=== PATIENT | male | born 1940 | race Caucasian/White ===

== ENCOUNTER 2023-07-03 18:14 | Emergency (ER) | payer MEDICARE, BC, SELFPAY ==
[2023-07-03 18:18] VITALS: BP 124/86
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
[2023-07-03 21:18] LABS: % Basophils 0.5 % (0-2); % Immature Granulocytes 0.5 % (0-0.5); % Lymphocytes 29.9 % (20.5-51.1); % Monocytes 7.7 % (1.7-9.3); % Neutrophils 56.4 % (42.2-75.2); Absolute Eosinophils 0.3 10^3/uL (0-0.7); Absolute Lymphocytes 1.7 10^3/uL (1.2-3.4); Absolute Monocytes 0.5 10^3/uL (0.1-0.6); Absolute Neutrophils 3.3 10^3/uL (1.4-6.5); Hematocrit 37.4 % (39.0-52.0); Hemoglobin 13.4 g/dL (13.0-18.0); Mean Corp Hgb Conc. 35.8 g/dL (33.0-37.0); Mean Corpuscular Hgb 32.4 pg (27.0-31.0); Mean Corpuscular Volume 90.6 fL (80.0-94.0); Mean Platelet Volume 9.8 fL (7.4-10.4); Nucleated Red Blood Cells % 0 % (-); Platelet Count 194 10^3/uL (130-400); Red Blood Cell Count 4.13 10^6/uL (4.70-6.10); Red Cell Dist. Width 12.6 % (11.5-14.5); White Blood Cell Count 5.8 10^3/uL (4.8-10.8)
[2023-07-03 21:31] LABS: ALT (SGPT) 22 U/L (0-50); AST (SGOT) 32 U/L (17-59); Alkaline Phosphatase 106 U/L (38-126); Blood Urea Nitrogen 11 mg/dl (9-20); Calcium 9.2 mg/dl (8.4-10.2); Carbon Dioxide 26 mmol/L (22-30); Chloride 106 mmol/L (98-107); Glucose 91 mg/dl (70-99); Lactic Acid 1.2 mmol/L (0.7-2.0); Potassium 4.5 mmol/L (3.5-5.1); Sodium 136 mmol/L (135-145); Total Bilirubin 0.9 mg/dl (0.2-1.3); Total Protein 6.7 g/dl (6.3-8.2); eGFR > 60.00
[2023-07-03] MEDS: VANCOCIN 200 IV (22:36)
== END 2023-07-04 00:25 | disposition home or self-care (01) ==
LOC: EMR 18:14
PROVIDERS: EMERGENCY PHYSICIAN Emergency Medicine; FAMILY PHYSICIAN Internal Medicine
DX: L03.116 Cellulitis of left lower limb (principal); L97.529 Non-pressure chronic ulcer of other part of left foot with unspecified severity; I47.10 Supraventricular tachycardia, unspecified; I25.10 Atherosclerotic heart disease of native coronary artery without angina pectoris; K21.9 Gastro-esophageal reflux disease without esophagitis; I10 Essential (primary) hypertension; E78.00 Pure hypercholesterolemia, unspecified; Z85.46 Personal history of malignant neoplasm of prostate; Z90.49 Acquired absence of other specified parts of digestive tract; Z95.0 Presence of cardiac pacemaker
CPT/HCPCS: 99284; 96374; 73630; 80053; 83605; 85025; 87040; 93971

== ENCOUNTER → 2023-07-06 08:06 | Outpatient (REF) | payer MEDICARE, BC, SELFPAY | LOC: WOUND 08:06 | PROVIDERS: ATTENDING PHYSICIAN Surgery; REFERRING PHYSICIAN Internal Medicine | DX: L97.322 Non-pressure chronic ulcer of left ankle with fat layer exposed (principal); W34.00XS Accidental discharge from unspecified firearms or gun, sequela; G60.3 Idiopathic progressive neuropathy | CPT/HCPCS: 17250; 99203 ==

== ENCOUNTER → 2023-07-13 11:10 | Outpatient (REF) | payer MEDICARE, BC, SELFPAY | LOC: WOUND 11:10 | PROVIDERS: ATTENDING PHYSICIAN Surgery; REFERRING PHYSICIAN Internal Medicine | DX: L97.322 Non-pressure chronic ulcer of left ankle with fat layer exposed (principal); W34.00XS Accidental discharge from unspecified firearms or gun, sequela; G60.3 Idiopathic progressive neuropathy; G62.9 Polyneuropathy, unspecified; M21.379 Foot drop, unspecified foot | CPT/HCPCS: 17250; 99212 ==

== ENCOUNTER → 2023-07-20 10:39 | Outpatient (REF) | payer MEDICARE, BC, SELFPAY | LOC: WOUND 10:39 | PROVIDERS: ATTENDING PHYSICIAN Surgery; REFERRING PHYSICIAN Internal Medicine | DX: L97.322 Non-pressure chronic ulcer of left ankle with fat layer exposed (principal); G60.3 Idiopathic progressive neuropathy; G62.9 Polyneuropathy, unspecified; M21.379 Foot drop, unspecified foot | CPT/HCPCS: 11042 ==

== ENCOUNTER → 2023-07-27 13:00 | Outpatient (REF) | payer MEDICARE, BC, SELFPAY | LOC: WOUND 13:00 | PROVIDERS: ATTENDING PHYSICIAN Surgery; FAMILY PHYSICIAN Internal Medicine | DX: L97.322 Non-pressure chronic ulcer of left ankle with fat layer exposed (principal); W34.00XS Accidental discharge from unspecified firearms or gun, sequela; G60.3 Idiopathic progressive neuropathy; G62.9 Polyneuropathy, unspecified; M21.379 Foot drop, unspecified foot | CPT/HCPCS: 11042 ==

== ENCOUNTER → 2023-08-04 10:28 | Outpatient (REF) | payer MEDICARE, BC, SELFPAY | LOC: WOUND 10:28 | PROVIDERS: ATTENDING PHYSICIAN Surgery; FAMILY PHYSICIAN Internal Medicine | DX: L97.322 Non-pressure chronic ulcer of left ankle with fat layer exposed (principal); W34.00XS Accidental discharge from unspecified firearms or gun, sequela; G60.3 Idiopathic progressive neuropathy; G62.9 Polyneuropathy, unspecified; M21.379 Foot drop, unspecified foot | CPT/HCPCS: 11042 ==

== ENCOUNTER → 2023-08-10 11:05 | Outpatient (REF) | payer MEDICARE, BC, SELFPAY | LOC: WOUND 11:05 | PROVIDERS: ATTENDING PHYSICIAN Surgery; FAMILY PHYSICIAN Internal Medicine | DX: L97.322 Non-pressure chronic ulcer of left ankle with fat layer exposed (principal); W34.00XS Accidental discharge from unspecified firearms or gun, sequela; G60.3 Idiopathic progressive neuropathy; G62.9 Polyneuropathy, unspecified; M21.379 Foot drop, unspecified foot | CPT/HCPCS: 99212 ==

== ENCOUNTER → 2023-08-17 11:32 | Outpatient (REF) | payer MEDICARE, BC, SELFPAY | LOC: WOUND 11:32 | PROVIDERS: ATTENDING PHYSICIAN Surgery; FAMILY PHYSICIAN Internal Medicine | DX: L97.322 Non-pressure chronic ulcer of left ankle with fat layer exposed (principal); W34.00XS Accidental discharge from unspecified firearms or gun, sequela; G60.3 Idiopathic progressive neuropathy; G62.9 Polyneuropathy, unspecified; M21.379 Foot drop, unspecified foot | CPT/HCPCS: 99212 ==

== ENCOUNTER → 2023-08-24 11:08 | Outpatient (REF) | payer MEDICARE, BC, SELFPAY | LOC: WOUND 11:08 | PROVIDERS: ATTENDING PHYSICIAN Surgery; FAMILY PHYSICIAN Internal Medicine | DX: L97.322 Non-pressure chronic ulcer of left ankle with fat layer exposed (principal); W34.00XS Accidental discharge from unspecified firearms or gun, sequela; G60.3 Idiopathic progressive neuropathy; G62.9 Polyneuropathy, unspecified; M21.379 Foot drop, unspecified foot | CPT/HCPCS: 99212 ==

== ENCOUNTER 2023-12-23 13:25 | Emergency (ER) | payer MEDICARE, BC, SELFPAY ==
[2023-12-23 13:31] VITALS: BP 90/54
[2023-12-23 13:33] VITALS: BMI 28.7
[2023-12-23 13:39] VITALS: BP 90/54
[2023-12-23 13:56] LABS: % Basophils 0.6 % (0-2); % Eosinophils 3.5 % (0-6); % Immature Granulocytes 0.4 % (0-0.5); % Lymphocytes 28.3 % (20.5-51.1); % Monocytes 8.5 % (1.7-9.3); % Neutrophils 58.7 % (42.2-75.2); Absolute Eosinophils 0.2 10^3/uL (0-0.7); Absolute Lymphocytes 1.4 10^3/uL (1.2-3.4); Absolute Monocytes 0.4 10^3/uL (0.1-0.6); Absolute Neutrophils 2.8 10^3/uL (1.4-6.5); Hematocrit 37.5 % (39.0-52.0); Hemoglobin 13.2 g/dL (13.0-18.0); Mean Corp Hgb Conc. 35.2 g/dL (33.0-37.0); Mean Corpuscular Hgb 33.8 pg (27.0-31.0); Mean Corpuscular Volume 96.2 fL (80.0-94.0); Mean Platelet Volume 10.5 fL (7.4-10.4); Nucleated Red Blood Cells % 0 % (-); Platelet Count 154 10^3/uL (130-400); Red Cell Dist. Width 14.1 % (11.5-14.5); White Blood Cell Count 4.8 10^3/uL (4.8-10.8)
[2023-12-23 14:00] VITALS: BP 89/58
--- NOTE | 2023-12-23 14:08 | ED.GENMED ---
History of Present Illness
General
Chief Complaint: Fainting/Passed Out
Source: patient
Time Seen by Provider: 12/23/23 13:54
History of Present Illness
History of Present Illness:
83-year-old male presents to the emergency room after suffering a syncopal episode. Patient was evidently in the shower where he sits to bathe himself. His heard him retching and came to find him unresponsive. Patient is now at his baseline.
He has a history of vasovagal events. Patient denies chest pain, shortness of breath, abdominal pain.
Past History
Past History
ED Past Medical History: Arrthythmia (SVT), CAD (Pacemaker), Cancer (prostate carcinoma), GERD, HTN, Hypercholesterolemia and Other (interval bowel syndrome, vertigo, peripheral neuropathy, gout, syncope)
ED Past Surgical History: Appendectomy, Cardiac (pacemaker, ablation) and Orthopedic (knee surgery, carpal tunnel repair, pain stimulator in lumbar spine placed 2019)
Patient has exhibited threatening behavior?: No
PSI?: No
Social History
Tobacco: Non-smoker
Alcohol: None
Drug: None
Personal:
Living: with family
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
Family History
Family History: Other (reviewed and Noncontributory)
Phy Exam
Physical Exam
Physical Exam:
General: Awake, Alert, Oriented X2. No acute distress.
Vitals: unremarkable
Head: Atraumatic
Eyes: Pupils equal, EOMI
Throat: Airway intact, no exudates
Neck: Trachea midline
Lungs: Clear and equal b/l
Heart: Regular rate, no murmurs
Abd: Soft, Nontender, No pulsatile mass
Neuro: Cranial nerves intact, muscle strength equal bilaterally, cerebellar exam normal, has aphasia which is baseline
Skin: Warm, dry, no rash
Extremities: pulses equal b/l, no edema
Course
Orders/Labs/Results
Orders:
Orders
12/23/23 13:28
Electrocardiogram (*1) Urgent
Reason for Study: Syncope
12/23/23 13:29
EKG- Treatment ONCE
12/23/23 13:40
CMP [Comprehensive Metabolic Panel] Urgent
Complete Blood Count/With Diff Urgent
Troponin I Urgent
12/23/23 14:07
0.9% Sodium Chloride 500 ml [Nss] 500 ml IV BOLUS
Abnormal Lab Results
12/23/23
13:40
RBC 3.90 L 10^6/uL
(4.70-6.10)
Hct 37.5 L %
(39.0-52.0)
MCV 96.2 H fL
(80.0-94.0)
MCH 33.8 H pg
(27.0-31.0)
MPV 10.5 H fL
(7.4-10.4)
Glucose 144 H mg/dl
(70-99)
12/23/23 13:40
12/23/23 13:40
Vital Signs
Initial and Last Documented VS:
Initial Vital Signs
Pulse Resp
72 22
12/23/23 13:28 12/23/23 13:28
Last Documented Vital Signs
Temp Pulse Resp BP Pulse Ox
97.5 F 63 13 123/56 96
12/23/23 13:30 12/23/23 16:00 12/23/23 16:00 12/23/23 16:00 12/23/23 16:00
MDM/Problems Addressed
Differential Diagnosis Includes:
Vasovagal syncope, cardiac dysrhythmia,
MDM/Problems Addressed:
Patient presents after passing out. He has returned to baseline. His physical exam is benign. Blood pressure was mildly low but has improved with some fluids. Suspect an element of dehydration along with vasovagal event. Patient ambulated
through the department without difficulty. Labs are reassuring. Stable for discharge home.
*Pulse Oximetry
Patient hypoxic: no
*EKG
Interpreted by ED Provider?: Yes
Interpretation: abnormal
Heart Rate: 67
Rate: normal
Rhythm: sinus
Interval: first degree heart block
QRS Pattern: normal QRS
Ischemia: no ischemia
*Pug Machine Operator Interpretation
Interpretation: normal
Heart Rate: 67
Rhythm: sinus
*Critical Care Note
Total Time (30-74mins, 75-104mins- exclusive of procedures): Not Applicable
Patient Management
Social determinants of health affecting care: Strong social support
ED Attending Note
-
Portions of this chart may have been created with voice recognition software.� Occasional wrong word or��sound alike� substitutions may have occurred due to the inherent limitations of voice recognition software.
Discharge Plan
Departure
Patient Disposition: Home (Routine Discharge)
Date of Disposition: 12/23/23
Time of Disposition: 16:08
Patient with high blood pressure during this ER visit?: No
Condition: Good
Discharge Problem:
Vasovagal syncope
Instructions: Syncope (Fainting) (DC)
Prescriptions:
No Action
pantoprazole 40 MG tablet,delayed release (DR/EC)
40 mg PO BID
dicyclomine 10 MG capsule
10 mg PO DAILY
tamsulosin 0.4 MG capsule
0.4 mg PO Daily
Hold Instructions: Resume on 04/27/22.
simvastatin 20 MG tablet
20 mg PO QPM
Hold Instructions: Resume on 04/28/22.
aspirin 81 MG tablet,delayed release (DR/EC)
81 mg PO DAILY
allopurinol 300 MG tablet
150 mg PO DAILY
pregabalin 200 mg Capsule
200 mg PO BID
Patient Comments:
04/19/2022: last filled 04/03/22, 60 tabs for 30 days from [facility]
cholecalciferol (vitamin D3) [Vitamin D3] 50 mcg (2,000 unit) Tablet
50 mcg PO DAILY
doxycycline monohydrate 100 mg capsule
100 mg PO BID Qty: 14 0RF
Referrals:
Chuck Young MD [Family Provider] -
Interventions
Interventions:
*Risk Screen - Suicide Last Done: 12/23/23 13:34
*General Assessment Last Done: 12/23/23 13:34
*Neglect/Abuse Screening Last Done: 12/23/23 13:34
*ED COVID-19 Vaccine History Last Done: 12/23/23 13:34
*Nursing Disposition Last Done: 12/23/23 16:23
ED- Cardiac Assessment Last Done: 12/23/23 13:35
ED- Neurological Assessment Last Done: 12/23/23 13:35
Discharge Date and Time
Discharge Date/Time: 12/23/23 16:24
Print Language: BELGIAN
[2023-12-23 14:15] LABS: ALT (SGPT) 21 U/L (0-50); AST (SGOT) 28 U/L (17-59); Albumin 3.9 g/dl (3.5-5.0); Alkaline Phosphatase 52 U/L (38-126); Blood Urea Nitrogen 17 mg/dl (9-20); Calcium 9.1 mg/dl (8.4-10.2); Carbon Dioxide 25 mmol/L (22-30); Chloride 105 mmol/L (98-107); Estimated Creatinine Clearance 61 ml/min; Glucose 144 mg/dl (70-99); Potassium 4.4 mmol/L (3.5-5.1); Sodium 139 mmol/L (135-145); Total Bilirubin 0.9 mg/dl (0.2-1.3); Total Protein 6.3 g/dl (6.3-8.2); eGFR > 60.00
[2023-12-23] MEDS: NSS 500 IV (14:16)
[2023-12-23 14:21] LABS: Troponin I < 0.012 ng/ml
[2023-12-23 15:00] VITALS: BP 122/48
[2023-12-23 16:00] VITALS: BP 123/56
== END 2023-12-23 16:24 | disposition home or self-care (01) ==
LOC: EMR 13:25
PROVIDERS: EMERGENCY PHYSICIAN Emergency Medicine; FAMILY PHYSICIAN Internal Medicine
DX: R55 Syncope and collapse (principal); I25.10 Atherosclerotic heart disease of native coronary artery without angina pectoris; I10 Essential (primary) hypertension; E78.00 Pure hypercholesterolemia, unspecified; K21.9 Gastro-esophageal reflux disease without esophagitis; M10.9 Gout, unspecified; G62.9 Polyneuropathy, unspecified; Z95.0 Presence of cardiac pacemaker; Z85.46 Personal history of malignant neoplasm of prostate; Z79.82 Long term (current) use of aspirin; Z88.6 Allergy status to analgesic agent; Z88.5 Allergy status to narcotic agent; Z91.048 Other nonmedicinal substance allergy status
CPT/HCPCS: 99284; 80053; 84484; 85025; 93005

== ENCOUNTER 2023-12-31 14:36 | Emergency (ER) | payer MEDICARE, BC, SELFPAY ==
[2023-12-31 14:38] VITALS: BP 133/58
[2023-12-31 15:09] LABS: % Basophils 0.6 % (0-2); % Eosinophils 3.9 % (0-6); % Immature Granulocytes 0.4 % (0-0.5); % Lymphocytes 31.9 % (20.5-51.1); % Monocytes 5.7 % (1.7-9.3); % Neutrophils 57.5 % (42.2-75.2); Absolute Eosinophils 0.2 10^3/uL (0-0.7); Absolute Lymphocytes 1.6 10^3/uL (1.2-3.4); Absolute Monocytes 0.3 10^3/uL (0.1-0.6); Absolute Neutrophils 2.8 10^3/uL (1.4-6.5); Hematocrit 38.2 % (39.0-52.0); Hemoglobin 13.7 g/dL (13.0-18.0); Mean Corp Hgb Conc. 35.9 g/dL (33.0-37.0); Mean Corpuscular Hgb 32.9 pg (27.0-31.0); Mean Corpuscular Volume 91.6 fL (80.0-94.0); Mean Platelet Volume 10.3 fL (7.4-10.4); Nucleated Red Blood Cells % 0 % (-); Platelet Count 167 10^3/uL (130-400); Red Blood Cell Count 4.17 10^6/uL (4.70-6.10); Red Cell Dist. Width 13.5 % (11.5-14.5); White Blood Cell Count 4.9 10^3/uL (4.8-10.8)
[2023-12-31 15:33] LABS: Glucose - Point of Care 135 mg/dl (70-99)
[2023-12-31 15:36] LABS: ALT (SGPT) 25 U/L (0-50); AST (SGOT) 31 U/L (17-59); Albumin 4.1 g/dl (3.5-5.0); Alkaline Phosphatase 59 U/L (38-126); Blood Urea Nitrogen 15 mg/dl (9-20); Calcium 9.5 mg/dl (8.4-10.2); Carbon Dioxide 30 mmol/L (22-30); Glucose 160 mg/dl (70-99); Total Bilirubin 0.7 mg/dl (0.2-1.3); Total Protein 6.6 g/dl (6.3-8.2); eGFR > 60.00
[2023-12-31 16:00] VITALS: BP 125/61
[2023-12-31 16:01] LABS: Chloride 103 mmol/L (98-107); Potassium 4.5 mmol/L (3.5-5.1); Sodium 140 mmol/L (135-145)
[2023-12-31 17:00] VITALS: BP 150/63
[2023-12-31 18:00] VITALS: BP 131/70
[2023-12-31 18:00] LABS: Urine Albumin Trace (Neg - Trace); Urine Bilirubin 1+ (Negative); Urine Character Slightly Cloudy (Clear); Urine Color Yellow; Urine Glucose Negative (Negative); Urine Ketone Negative (Negative); Urine Leukocyte 2+ (Negative); Urine Nitrite Negative (Negative); Urine Occult Blood 4+ (Negative); Urine Specific Gravity 1.005 (<1.030); Urine Urobilinogen Negative (Neg - 1+)
[2023-12-31] MEDS: NSS 500 IV (18:22)
[2023-12-31 18:31] LABS: Urine Red Blood Cell 26-30 /HPF (0-2)
--- NOTE | 2023-12-31 18:32 | ED.GENMED ---
History of Present Illness
General
Chief Complaint: Change in Mental Status
Source: patient and family
Exam Limitations: dementia
Time Seen by Provider: 12/31/23 14:51
History of Present Illness
History of Present Illness:
83-year-old male who presents after a syncopal episode at home. states this happens to him often and typically only happens once or twice a year but recently happened on the . Patient offers no complaints but is noted that he has a
history of 'aphasia'. Sounds like family states that he was diagnosed with aphasia and truly unknown cause. They considered NPH but family states that they were told it was unlikely to be that. No vomiting. Patient offers no current complaints
but do admit that sometimes he does seem off balance
Past History
Past History
ED Past Medical History: Arrthythmia (SVT), CAD (Pacemaker), Cancer (prostate carcinoma), GERD, HTN, Hypercholesterolemia and Other (interval bowel syndrome, vertigo, peripheral neuropathy, gout, syncope)
ED Past Surgical History: Appendectomy, Cardiac (pacemaker, ablation) and Orthopedic (knee surgery, carpal tunnel repair, pain stimulator in lumbar spine placed 2019)
Patient has exhibited threatening behavior?: No
PSI?: No
Social History
Tobacco: Non-smoker
Alcohol: None
Drug: None
Personal:
Living: with family
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
Family History
Family History: Other (reviewed and Noncontributory)
Phy Exam
Physical Exam
Physical Exam:
Exam: Awake and alert, no respiratory distress, heart regular, no focal deficits, no pronator drift, is a bit aphasic at times and slightly confused. Unable to assess orientation questions. Skin normal. Abdomen soft and nontender.
Course
Orders/Labs/Results
Orders:
Orders
12/31/23 14:51
CT Head W/o Iv Contrast Urgent
Comment:
Reason For Exam: change in MS
Bedside Glucose- Treatment ONCE
Cardiac Monitoring- Treatment ONCE
12/31/23 14:52
Electrocardiogram (*1) Stat
Reason for Study: Other
Other Reason for Exam: change in ms
EKG- Treatment ONCE
12/31/23 14:58
Complete Blood Count/With Diff Urgent
Comprehensive Metabolic Panel Urgent
12/31/23 17:46
Urinalysis Reflex To Culture Urgent
Date Specimen was Collected: 12/31/23
Time Specimen was Collected: 16:22
Urine Microscopic Reflex Cult Urgent
Urine Culture Urgent
ROMINA Source: U
Specimen Description:
Date Specimen was Collected: 12/31/23
Time Specimen was Collected: 16:22
12/31/23 18:16
0.9% Sodium Chloride 500 ml [Nss] 500 ml IV BOLUS
Abnormal Lab Results
12/31/23 12/31/23 12/31/23
14:58 15:31 17:46
RBC 4.17 L 10^6/uL
(4.70-6.10)
Hct 38.2 L %
(39.0-52.0)
MCH 32.9 H pg
(27.0-31.0)
Glucose 160 H mg/dl
(70-99)
Ur Occult Blood Reflex 4+ A
(Negative)
Urine Bilirubin 1+ A
(Negative)
Leukocyte Esterase Rfl 2+ A
(Negative)
Urine RBC 26-30 A /HPF
(0-2)
Urine WBC (Reflex) 11-15 A /HPF
(0-5)
POC Glucose 135 H mg/dl
(70-99)
12/31/23 14:58
12/31/23 14:58
Vital Signs
Initial and Last Documented VS:
Initial Vital Signs
BP
133/58
12/31/23 14:38
Last Documented Vital Signs
Temp Pulse Resp BP Pulse Ox
99.1 F 73 15 131/70 96
12/31/23 19:02 12/31/23 18:30 12/31/23 18:30 12/31/23 18:00 12/31/23 18:00
MDM/Problems Addressed
MDM/Problems Addressed:
Syncope, chronic aphasia
*Radiology
Radiology exam reviewed: preliminary read by ED provider (No obvious intracranial hemorrhage) and radiology read reviewed
*Pulse Oximetry
Patient hypoxic: no
*EKG
Interpreted by ED Provider?: Yes
Rate: normal
Rhythm: sinus
[employer]: left axis deviation
Interval: normal interval
Ischemia: no ischemia
*Panel Machine Setter Interpretation
Rate: normal
Interpretation: normal
Rhythm: sinus
*Critical Care Note
Total Time (30-74mins, 75-104mins- exclusive of procedures): Not Applicable
Data Reviewed
Review of Other/Old Records Reveals: Radiology Studies (Prior MRI reading reviewed) and Discharge Summary (Prior discharge summary reviewed from September 2022)
Patient Management
Discussion with other providers: Other (Case discussed with [employer] plant health care technician who reports no abnormal arrhythmias when interrogated)
Escalation/DeEscalation of care consider admission/obs:
Patient observed and appears well. No evidence of abnormal arrhythmia. Labs grossly unremarkable. History of similar. I did discuss with the patient the idea of reconsidering NPH given his CT. May consider repeat neurology follow-up for lumbar
puncture to see if that improves symptoms. Okay for discharge. Prior MRI reviewed by me showing low sensitivity or concern for NPH.
ED Attending Note
-
Portions of this chart may have been created with voice recognition software.� Occasional wrong word or��sound alike� substitutions may have occurred due to the inherent limitations of voice recognition software.
Discharge Plan
Departure
Patient Disposition: Home (Routine Discharge)
Date of Disposition: 12/31/23
Time of Disposition: 18:59
Patient with high blood pressure during this ER visit?: No
Discharge Problem:
Syncope
Instructions: Syncope (fainting)
Prescriptions:
No Action
pantoprazole 40 MG tablet,delayed release (DR/EC)
40 mg PO BIDPRN PRN (Reason: Gastrointestinal issue)
dicyclomine 10 MG capsule
10 mg PO TIDPRN PRN (Reason: abdominal cramps)
tamsulosin 0.4 MG capsule
0.4 mg PO QPM
simvastatin 20 MG tablet
20 mg PO QPM
aspirin 81 MG tablet,delayed release (DR/EC)
81 mg PO QPM
allopurinol 300 MG tablet
150 mg PO DAILY
pregabalin 200 mg Capsule
200 mg PO TID
Patient Comments:
12/31/2023: last filled 12/22/23, 90 tabs for 30 days from [facility]
cholecalciferol (vitamin D3) [Vitamin D3] 50 mcg (2,000 unit) Tablet
100 mcg PO DAILY
B Complex Tablet Extended Release
1 tab PO DAILY
erythromycin 5 mg/gram (0.5 %) ointment
0.25 inch ophthalmic (eye) BID
Patient Comments:
12/31/2023: 'apply 1/4 inch ON EYELID twice a day'
Nad Supplement tablet
1 tab PO DAILY
Referrals:
Chuck Young MD [Family Provider] -
Activity Restrictions/Additional Instructions:
Please see your doctor in follow-up as discussed. 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 Return immediately for vomiting, chest pain, shortness of breath or any other
concerns.
Interventions
Interventions:
*Risk Screen - Suicide Last Done: 12/31/23 15:56
*General Assessment Last Done: 12/31/23 15:56
*Neglect/Abuse Screening Last Done: 12/31/23 15:56
ED- Fall Risk Assessment Last Done: 12/31/23 15:56
*ED COVID-19 Vaccine History Last Done: 12/31/23 15:56
ED- Neurological Assessment Last Done: 12/31/23 16:00
ED- Cardiac Assessment Last Done: 12/31/23 16:05
Discharge Date and Time
Print Language: PARAGUAYAN
[2023-12-31 19:01] VITALS: BP 146/71
== END 2023-12-31 20:04 | disposition home or self-care (01) ==
LOC: EMR 14:36
PROVIDERS: EMERGENCY PHYSICIAN Emergency Medicine; FAMILY PHYSICIAN Internal Medicine
DX: R55 Syncope and collapse (principal)
CPT/HCPCS: 99285; 70450; 80053; 81003; 81015; 82962; 85025; 87086; 93005

== ENCOUNTER 2024-01-29 16:14 | Inpatient (IN) | payer MEDICARE, BC, SELFPAY ==
[2024-01-29] VITALS (7 sets, daily range): BP systolic 100–147; BP diastolic 60–73
--- NOTE | 2024-01-29 13:28 | ED.GENMED ---
History of Present Illness
<Angelo Groves PA-C - Last Filed: 01/29/24 15:35>
General
Chief Complaint: Weakness
Source: records, family and ambulance crew
Time Seen by Provider: 01/29/24 13:14
History of Present Illness
History of Present Illness:
83-year-old male with past medical history of dementia, chronic pain, cardiac dysrhythmia status post pacemaker placement, prostate cancer presenting to the ER via EMS from home for reported generalized pain. Patient had his pain stimulator removed
yesterday (unclear as to why and EMS was unable to tell us why) and has been reportedly continuously yelling and screaming. Patient unable to provide any history secondary to his mental status.
Past History
<Angelo Groves PA-C - Last Filed: 01/29/24 15:35>
Past History
ED Past Medical History: Arrthythmia (SVT), CAD (Pacemaker), Cancer (prostate carcinoma), GERD, HTN, Hypercholesterolemia and Other (interval bowel syndrome, vertigo, peripheral neuropathy, gout, syncope)
ED Past Surgical History: Appendectomy, Cardiac (pacemaker, ablation) and Orthopedic (knee surgery, carpal tunnel repair, pain stimulator in lumbar spine placed 2020)
Patient has exhibited threatening behavior?: No
PSI?: No
Social History
Tobacco: Non-smoker
Alcohol: None
Drug: None
Personal:
Living: with family
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
Family History
Family History: Other (reviewed and Noncontributory)
Review of Systems
<Angelo Groves PA-C - Last Filed: 01/29/24 15:35>
Review of Systems
All Other Systems: ROS reviewed and negative except as documented in HPI and ROS
Phy Exam
<Angelo Groves PA-C - Last Filed: 01/29/24 15:35>
Physical Exam
Physical Exam:
GENERAL: Alert , in no apparent distress intermittently yelling out and screaming at staff but redirectable
EYE: conjunctiva clear
NECK: Supple
ENT: o/p clr, mmm.
CARDIAC: Regular rate and rhythm
LUNGS: Clear breath sounds bilaterally, no acute respiratory distress, no wheezes/rales/rhonchi
Back: 2 dressings overlying the central distal thoracic/upper lumbar spine and 1 within the left paralumbar region. No surrounding erythema or purulence
NEUROLOGICAL: Alert but unable to answer questions
SKIN: Warm and dry, skin intact.
MUSCULOSKELETAL: well perfused.
PSYCH: Unable to assess
Scores
<Angelo Groves PA-C - Last Filed: 01/29/24 15:35>
Heart Failure Risk
Heart Failure Risk Score: Not Applicable
Heart Score for Chest Pain Patients
STEMI patient?: Not applicable
Withdrawal Assessment of Alcohol
Withdrawal Assessment Completed?: Not applicable
Course
<Angelo Groves PA-C - Last Filed: 01/29/24 15:35>
Orders/Labs/Results
Orders:
Orders
01/29/24 13:45
Complete Blood Count/With Diff Urgent
Comprehensive Metabolic Panel Urgent
Urinalysis Reflex To Culture Urgent
Date Specimen was Collected: 01/29/24
Time Specimen was Collected: 13:43
Urine Microscopic Reflex Cult Urgent
Urine Culture Urgent
ROMINA Source: U
Specimen Description:
Date Specimen was Collected: 01/29/24
Time Specimen was Collected: 13:43
01/29/24 13:46
Interrogate Pacemaker- Treatment ONCE
Lorazepam [Ativan] 1 mg IV NOW STA
01/29/24 13:47
CT Head W/o Iv Contrast Urgent
Comment:
Reason For Exam: AMS, fall, ? hydrocephalus
01/29/24 14:00
Pregabalin [Lyrica] 200 mg PO NOW STA
01/29/24 14:31
CefTRIAXone [Rocephin] 1,000 mg IV NOW STA
Abnormal Lab Results
01/29/24
13:45
RBC 4.13 L 10^6/uL
(4.70-6.10)
Hct 38.0 L %
(39.0-52.0)
MCH 32.7 H pg
(27.0-31.0)
MPV 11.0 H fL
(7.4-10.4)
Abs Immat Gran (auto) 0.1 H 10^3/uL
(0-0.05)
Absolute Monos (auto) 1.1 H 10^3/uL
(0.1-0.6)
Immature Gran % 0.6 H %
(0-0.5)
Monocytes % 12.5 H %
(1.7-9.3)
Glucose 108 H mg/dl
(70-99)
Total Bilirubin 1.5 H mg/dl
(0.2-1.3)
Ur Occult Blood Reflex 3+ A
(Negative)
Urine Nitrite (Reflex) Positive A
(Negative)
Leukocyte Esterase Rfl 2+ A
(Negative)
Urine WBC (Reflex) >100 A /HPF
(0-5)
Urine Albumin (Reflex) 2+ A
(Neg - Trace)
01/29/24 13:45
01/29/24 13:45
Vital Signs
Initial and Last Documented VS:
Initial Vital Signs
Temp Pulse Resp BP Pulse Ox
97.8 F 77 16 124/62 97
01/29/24 13:15 01/29/24 13:15 01/29/24 13:15 01/29/24 13:15 01/29/24 13:15
Last Documented Vital Signs
Temp Pulse Resp BP Pulse Ox
97.8 F 78 15 124/60 96
01/29/24 13:15 01/29/24 14:15 01/29/24 14:15 01/29/24 14:26 01/29/24 14:26
<Mando Cruz MD - Last Filed: 01/29/24 14:04>
Orders/Labs/Results
Orders:
Orders
01/29/24 13:45
Complete Blood Count/With Diff Urgent
Comprehensive Metabolic Panel Urgent
Urinalysis Reflex To Culture Urgent
Date Specimen was Collected: 01/29/24
Time Specimen was Collected: 13:43
Urine Microscopic Reflex Cult Urgent
Urine Culture Urgent
ROMINA Source: U
Specimen Description:
Date Specimen was Collected: 01/29/24
Time Specimen was Collected: 13:43
01/29/24 13:46
Interrogate Pacemaker- Treatment ONCE
Lorazepam [Ativan] 1 mg IV NOW STA
01/29/24 13:47
CT Head W/o Iv Contrast Urgent
Comment:
Reason For Exam: AMS, fall, ? hydrocephalus
01/29/24 14:00
Pregabalin [Lyrica] 200 mg PO NOW STA
01/29/24 14:31
CefTRIAXone [Rocephin] 1,000 mg IV NOW STA
Abnormal Lab Results
01/29/24
13:45
RBC 4.13 L 10^6/uL
(4.70-6.10)
Hct 38.0 L %
(39.0-52.0)
MCH 32.7 H pg
(27.0-31.0)
MPV 11.0 H fL
(7.4-10.4)
Abs Immat Gran (auto) 0.1 H 10^3/uL
(0-0.05)
Absolute Monos (auto) 1.1 H 10^3/uL
(0.1-0.6)
Immature Gran % 0.6 H %
(0-0.5)
Monocytes % 12.5 H %
(1.7-9.3)
Glucose 108 H mg/dl
(70-99)
Total Bilirubin 1.5 H mg/dl
(0.2-1.3)
Ur Occult Blood Reflex 3+ A
(Negative)
Urine Nitrite (Reflex) Positive A
(Negative)
Leukocyte Esterase Rfl 2+ A
(Negative)
Urine WBC (Reflex) >100 A /HPF
(0-5)
Urine Albumin (Reflex) 2+ A
(Neg - Trace)
01/29/24 13:45
01/29/24 13:45
Vital Signs
Initial and Last Documented VS:
Initial Vital Signs
Temp Pulse Resp BP Pulse Ox
97.8 F 77 16 124/62 97
01/29/24 13:15 01/29/24 13:15 01/29/24 13:15 01/29/24 13:15 01/29/24 13:15
Last Documented Vital Signs
Temp Pulse Resp BP Pulse Ox
97.8 F 78 15 124/60 96
01/29/24 13:15 01/29/24 14:15 01/29/24 14:15 01/29/24 14:26 01/29/24 14:26
<Angelo Groves PA-C - Last Filed: 01/29/24 15:35>
MDM/Problems Addressed
Differential Diagnosis Includes:
Medication withdrawal, dementia, less concern for surgical infection given surgery occurred less than 24 hours ago
MDM/Problems Addressed:
83-year-old male presenting to the emergency department for evaluation of reportedly generalized pain. History very difficult to obtain given dementia. Patient is mostly not answering questions but did respond to his name. Patient reportedly had
his pain stimulator removed yesterday and on his medication list it notes clindamycin due to infection of the stimulator. I contacted the patient's who is currently driving and on her way to the hospital so will obtain further information from
when she arrives here. Patient's disposition pending. In the meantime we will check labs and urine. Reassessment following
Chronic conditions affecting care: Other (Dementia, chronic pain disorder)
<Angelo Groves PA-C - Last Filed: 01/29/24 15:35>
*Radiology
Radiology exam reviewed: radiology read reviewed
*Pulse Oximetry
Patient hypoxic: no
*Critical Care Note
Total Time (30-74mins, 75-104mins- exclusive of procedures): Not Applicable
Data Reviewed
Review of Other/Old Records Reveals: Labs and Discharge Summary
<Angelo Groves PA-C - Last Filed: 01/29/24 15:35>
Comment
Comment:
1:45 PM: Patient's now in the emergency department. Spinal stimulator was removed as it was not functioning properly and leads were not in the correct place. This was also removed so that patient could proceed with getting an MRI as he is
currently in the workup with [facility] for a hydrocephalus. Patient has had CT scans done which showed dilation of the ventricles and there was concern for this however because patient's spinal stimulator was not going correctly into MRI compatible
mode is needed to be removed. Patient notes that he does have a pacemaker that is MRI compatible. We will interrogate patient's pacemaker. Patient's also notes that he is fallen 4 times in the last week with last being around 4 AM where
patient was wedged in between the bed and the nightstand. She notes she was unable to get him up and needed to call EMS to get him back into bed. Patient states that she does not feel patient is safe to go home and would be best served being
admitted or transferred.
Patient Management
Discussion with other providers: Hospitalist
Escalation/DeEscalation of care consider admission/obs:
Patient's urine is nitrite positive with greater than 100 WBCs. Rocephin ordered. Head CT unremarkable for any acute pathology. Patient to be admitted for continued workup and treatment.
ED Attending Note
<Angelo Groves PA-C - Last Filed: 01/29/24 15:35>
-
Portions of this chart may have been created with voice recognition software.� Occasional wrong word or��sound alike� substitutions may have occurred due to the inherent limitations of voice recognition software.
<Mando Cruz MD - Last Filed: 01/29/24 14:04>
ED Attending Note
Patient seen and examined by attending physician: Yes
I performed the substantive portion of visit, reviewed & personally made and approve the management plan that is documented in note by myself or ROMULO.: Yes
ED Attending Note:
History is from the patient's . 83-year-old male history of aphasia with known hydrocephalus presents with gradual but progressive change in mental status. Patient had a nerve stimulator removed yesterday so we can get an MRI. However over
the last 2 weeks he has been nonambulatory increasing change in mental status. Patient is unable to add history.
On exam patient is nontoxic-appearing stable vital signs. Warm and dry. Perfusing well. Will make good eye contact and at times follow some simple directions but at other times ignores these request. He is grossly nonfocal. He is aphasic. He
at times seems to wince with increasing pain grabbing the right leg. This apparently is a chronic issue.
Impression progressive gradual with more acute component of mental status change general weakness. Doubt acute infectious issue. Patient is nontoxic. Workup in progress including labs CT of the head. Will need admission. Depending on results
may or may not need more urgent neurosurgical involvement
Discharge Plan
Departure
Patient Disposition: Admit
Date of Disposition: 01/29/24
Time of Disposition: 15:13
Presentation/result/management discussed w/ accepting MD/DO: Hospitalist
Discharge Problem:
Acute UTI, Altered mental status
Prescriptions:
No Action
pantoprazole 40 MG tablet,delayed release (DR/EC)
40 mg PO BIDPRN PRN (Reason: Gastrointestinal issue)
dicyclomine 10 MG capsule
10 mg PO TIDPRN PRN (Reason: abdominal cramps)
tamsulosin 0.4 MG capsule
0.4 mg PO QPM
simvastatin 20 MG tablet
20 mg PO QPM
aspirin 81 MG tablet,delayed release (DR/EC)
81 mg PO QPM
allopurinol 300 MG tablet
150 mg PO DAILY
pregabalin 200 mg Capsule
200 mg PO TID
Patient Comments:
01/29/24: last filled 01/19/24, 90 tabs for 30 days from [facility]
B Complex Tablet Extended Release
1 tab PO DAILY
Nad Supplement tablet
1 tab PO DAILY
ketoconazole 2 % Shampoo
1 applic TOPICAL DAILY
clindamycin HCl 300 mg Capsule
300 mg PO TID
Patient Comments:
01/29/24: filled 01/25/24, to take for 7 days
cholecalciferol (vitamin D3) 100 mcg (4,000 unit) Tablet
100 mcg PO DAILY
Referrals:
UNKNOWN - PT NOT,INTERVIEWE [Family Provider] -
Interventions
Interventions:
*Risk Screen - Suicide Last Done: 01/29/24 13:15
*General Assessment Last Done: 01/29/24 13:15
*Neglect/Abuse Screening Last Done: 01/29/24 13:15
ED- Fall Risk Assessment Last Done: 01/29/24 14:26
*ED COVID-19 Vaccine History Last Done: 01/29/24 14:28
ED- Cardiac Assessment Last Done: 01/29/24 14:26
ED- Neurological Assessment Last Done: 01/29/24 14:26
ED- Pulmonary Assessment Last Done: 01/29/24 14:26
Discharge Date and Time
Print Language: SAMI
[2024-01-29 13:53] LABS: % Basophils 0.2 % (0-2); % Eosinophils 1.2 % (0-6); % Immature Granulocytes 0.6 % (0-0.5); % Lymphocytes 22.8 % (20.5-51.1); % Monocytes 12.5 % (1.7-9.3); % Neutrophils 62.7 % (42.2-75.2); Absolute Eosinophils 0.1 10^3/uL (0-0.7); Absolute Immature Granulocytes 0.1 10^3/uL (0-0.05); Absolute Lymphocytes 1.9 10^3/uL (1.2-3.4); Absolute Monocytes 1.1 10^3/uL (0.1-0.6); Absolute Neutrophils 5.3 10^3/uL (1.4-6.5); Hemoglobin 13.5 g/dL (13.0-18.0); Mean Corp Hgb Conc. 35.5 g/dL (33.0-37.0); Mean Corpuscular Hgb 32.7 pg (27.0-31.0); Nucleated Red Blood Cells % 0 % (-); Platelet Count 179 10^3/uL (130-400); Red Blood Cell Count 4.13 10^6/uL (4.70-6.10); Red Cell Dist. Width 12.9 % (11.5-14.5); White Blood Cell Count 8.4 10^3/uL (4.8-10.8)
[2024-01-29] MEDS: ATIVAN 1 MG IV (13:55)
[2024-01-29 14:09] LABS: ALT (SGPT) 26 U/L (0-50); AST (SGOT) 29 U/L (17-59); Albumin 3.9 g/dl (3.5-5.0); Alkaline Phosphatase 77 U/L (38-126); Blood Urea Nitrogen 18 mg/dl (9-20); Calcium 9.3 mg/dl (8.4-10.2); Carbon Dioxide 27 mmol/L (22-30); Chloride 102 mmol/L (98-107); Glucose 108 mg/dl (70-99); Potassium 4.4 mmol/L (3.5-5.1); Sodium 137 mmol/L (135-145); Total Bilirubin 1.5 mg/dl (0.2-1.3); Total Protein 6.5 g/dl (6.3-8.2); eGFR > 60.00
[2024-01-29 14:10] LABS: Urine Albumin 2+ (Neg - Trace); Urine Bilirubin Negative (Negative); Urine Character Very Cloudy (Clear); Urine Color Yellow; Urine Glucose Negative (Negative); Urine Ketone Negative (Negative); Urine Leukocyte 2+ (Negative); Urine Nitrite Positive (Negative); Urine Occult Blood 3+ (Negative); Urine Urobilinogen Negative (Neg - 1+)
[2024-01-29] MEDS: LYRICA 200 MG PO (14:21)
[2024-01-29 14:45] LABS: Urine White Cell >100 /HPF (0-5)
[2024-01-29] MEDS: ROCEPHIN 1000 MG IV (14:47)
--- NOTE | 2024-01-29 15:16 | HPS.HSE ---
Addendum entered and electronically signed by Dave Epstein MD 01/29/24 16:38:
I saw and examined the patient.
The ELASTIC ASSEMBLER or PA's note was reviewed and I agree with the note.
Comment:
83 years old with past medical history for SVT, prostate cancer, GERD, hypertension, hyperlipidemia, irritable bowel syndrome, vertigo, peripheral neuropathy, gout, syncope presented to us with worsening confusion, frequent falls for past few days.
Of note, being worked up for possible hydrocephalus at [facility]. straight caths patient. Patient had worsening confusion frequent falls since last February. Required to have brain stimulator removed for MRI which was removed
yesterday. Patient's symptoms worsened, along with screaming and yelling today with pain�this is most likely secondary to lack of pain stimulator. Otherwise vitals stay stable labs grossly unremarkable, UA positive. CT head with chronic central
atrophy and microvascular ischemic disease. Plan�continue ceftriaxone for UTI. F/u cultures. Haldol for agitation if qtc <500, toradol for pain.
Original Note:
Family Physician
-
Family Physician: INTERVIEWE UNKNOWN - PT NOT
Chief Complaint
-
Worsening confusion and falls
History of Present Illness
83 years old with past medical history for SVT, prostate cancer, GERD, hypertension, hyperlipidemia, irritable bowel syndrome, vertigo, peripheral neuropathy, gout, syncope presented to us with worsening confusion, frequent falls for past few days.
Patient with confusion and frequent falls since last February. His brain stimulator was removed yesterday to get MRI to find out the cause of confusion and fall. Patient was told by a physician that he might have fluid in his brain and should
get an MRI. Family not able to obtain MRI until March. As per ,she brought him due to worsening right lower extremity pain. He was screaming and yelling today with pain. he was prescribed clindamycin prophylactically since the pain
stimulator removal yesterday. Patient is poor historian. Not able to answer any questions appropriately.
He was noted to have positive UA. Patient received ceftriaxone for UTI, Ativan for agitation and Lyrica for pain. Admitted for further management
Medical History
Past Medical History
Past Medical History: Reports Other
Additional Past Medical History:
Gout
Syncope
IBS
peripheral neuropathy
GERD
Colon polyps
Hyperlipidemia
Vertigo
Prostate cancer
Kidney stones
Sick sinus syndrome
SVT
Chronic pain
Past Surgical History: Reports Other
Additional Past Surgical History:
Appendectomy
Knee surgery
Carpal tunnel surgery
Pacemaker placement
Laminectomy
SVT ablation
Pain stimulator in back
jaw surgery
Social History
Tobacco: Non-smoker
Alcohol: None
Drug: None
Personal:
Living: With Family
Family History
Family History: Not pertinent
Allergies / Home Medications
Allergies reflects when Allergies were last updated in [facility].
Home Medications with original date entered in [facility]
Allergy/Medication List:
Allergies
Allergy/AdvReac Type Severity Reaction Status Date / Time
acetaminophen [From Percocet] Allergy combative Verified 01/29/24 13:14
oxycodone [From Percocet] Allergy combative Verified 01/29/24 13:14
pollen extracts Allergy Hayfever Verified 01/29/24 13:14
Home Medications
dicyclomine 10 mg capsule 10 mg PO TIDPRN PRN abdominal cramps 01/17/18
pantoprazole 40 mg tablet,delayed release 40 mg PO BIDPRN PRN Gastrointestinal issue 01/17/18
simvastatin 20 mg tablet 20 mg PO QPM High cholesterol 10/05/20
tamsulosin 0.4 mg capsule 0.4 mg PO QPM Urinary issue 10/05/20
allopurinol 300 mg tablet 150 mg PO DAILY Gout 04/16/21
aspirin 81 mg tablet,delayed release 81 mg PO QPM Blood clot prevention/tx 11/02/21
pregabalin 200 mg capsule 200 mg PO TID Neurological Condition 04/19/22
Nad Supplement 1 tab PO DAILY 12/31/23
vitamin B complex 1 tab PO DAILY 12/31/23
cholecalciferol (vitamin D3) 100 mcg (4,000 unit) tablet 100 mcg PO DAILY 01/29/24
clindamycin HCl 300 mg capsule 300 mg PO TID 01/29/24
ketoconazole 2 % shampoo 1 applic topical DAILY 01/29/24
Review of Systems
-
Unable to obtain full review of systems at this time due to: Other (Confusion)
Physical Exam
Vital Signs
Vital Signs
Temp Pulse Resp BP Pulse Ox
97.8 F 78 15 124/60 96
01/29/24 13:15 01/29/24 14:15 01/29/24 14:15 01/29/24 14:26 01/29/24 14:26
Physical Exam
General: Well Developed, Well Nourished and No Apparent Distress
HEENT: NormoCephalic, Moist mucous membranes and Atraumatic
Respiratory: Clear
Cardiac: S1/S2 and Regular Rhythm; No Murmur or Rub
GI: Soft, Non Tender, Non Distended and Normal Bowel Sounds; No Organomegaly
Rectal: Deferred by Provider
Musculoskeletal: No Clubbing, No Cyanosis and No Edema
Skin: No Rash
Neuro: Nonfocal/grossly intact
Psych: Calm and Confused
Laboratory Results
-
01/29/24 13:45
01/29/24 13:45
Laboratory Results
Total Bilirubin 1.5 mg/dl (0.2-1.3) H 01/29/24 13:45
AST 29 U/L (17-59) 01/29/24 13:45
ALT 26 U/L (0-50) 01/29/24 13:45
Alkaline Phosphatase 77 U/L (38-126) 01/29/24 13:45
Data Reviewed
-
CT Scan: Report Reviewed by me
Lab Data: Labs Reviewed by me
Impression/Plan
-
# Metabolic encephalopathy likely from urinary tract infection
#frequent falls
#neurogenic bladder
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
-Positive urinalysis
-Urine culture sent from ER
-ceftriaxone continued
-straight cath 3 times a day
-PT/OT consulted for fall
#? hydrocephalus
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
-obtain MRI as outpatient
# hx of Peripheral neuropathy
-Continue Lyrica
#History of SVT status post ablation/Sick sinus syndrome�s/p pacemaker
# Chronic Back Pain s/p Spinal Stimulator
-Stimulator removed yesterday
# GERD
-Continue Protonix
# Gout
-Continue allopurinol
#hxt of IBS
dicyclomine continued
#HLD
-statin continued
# Hx Prostate CA s/p Radiation/BPH
-Flomax continued
#DVT prophylaxis
-Lovenox
#CODE status
-full code
[2024-01-29] MEDS: LOVENOX 40 MG SC (20:03)
[2024-01-29] MEDS: ASPIR LOW (ENTERIC COATED) PO ×2 (20:03→20:11)
[2024-01-29] MEDS: FLOMAX PO ×2 (20:03→20:10)
[2024-01-29] MEDS: LIPITOR PO ×2 (20:03→20:11)
[2024-01-29] MEDS: LYRICA PO (20:14)
[2024-01-30 07:31] LABS: Hematocrit 38.5 % (39.0-52.0); Hemoglobin 13.6 g/dL (13.0-18.0); Mean Corp Hgb Conc. 35.3 g/dL (33.0-37.0); Mean Corpuscular Hgb 33.3 pg (27.0-31.0); Mean Corpuscular Volume 94.1 fL (80.0-94.0); Mean Platelet Volume 10.8 fL (7.4-10.4); Platelet Count 144 10^3/uL (130-400); Red Blood Cell Count 4.09 10^6/uL (4.70-6.10); Red Cell Dist. Width 12.9 % (11.5-14.5); White Blood Cell Count 6.6 10^3/uL (4.8-10.8)
[2024-01-30 07:32] VITALS: BP 134/66
[2024-01-30 08:37] LABS: Blood Urea Nitrogen 18 mg/dl (9-20); Carbon Dioxide 25 mmol/L (22-30); Chloride 104 mmol/L (98-107); Estimated Creatinine Clearance 68 ml/min; Glucose 103 mg/dl (70-99); Sodium 137 mmol/L (135-145); eGFR > 60.00
[2024-01-30] MEDS: ZYLOPRIM PO (09:33)
[2024-01-30] MEDS: LYRICA PO ×2 (09:33→20:48)
--- NOTE | 2024-01-30 12:23 | W.PN.HOSP.TC ---
Today's Communication/Plan
-
cont abx
f/u cultures
avoid benzos/sedatives
speech eval
Assessment / Plan
Assessment / Plan
Physical Exam
General: Well Developed, Well Nourished and No Apparent Distress
HEENT: NormoCephalic, Moist mucous membranes and Atraumatic
Respiratory: Clear
Cardiac: S1/S2 and Regular Rhythm; No Murmur or Rub
GI: Soft, Non Tender, Non Distended and Normal Bowel Sounds; No Organomegaly
Rectal: Deferred by Provider
Musculoskeletal: No Clubbing, No Cyanosis and No Edema
Skin: No Rash
Neuro: Nonfocal/grossly intact; AOOx1
Psych: Calm and Confused
# Metabolic encephalopathy likely from
#urinary tract infection
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
-F/u cultures
-cont abx
-PT/OT consulted for fall
-monitor mental status
-speech eval
-haldol prn
-avoid benzos/sedatives
#? hydrocephalus
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
-obtain MRI as outpatient as per neurology recs from [facility]
#frequent falls
#neurogenic bladder
-chronic
-see plan above for hydrocephalus work up
--straight cath 3 times a day
# hx of Peripheral neuropathy
-Continue Lyrica
#History of SVT status post ablation/Sick sinus syndrome�s/p pacemaker
# Chronic Back Pain s/p Spinal Stimulator
-Stimulator removed yesterday
# GERD
-Continue Protonix
# Gout
-Continue allopurinol
#hxt of IBS
dicyclomine continued
#HLD
-statin continued
# Hx Prostate CA s/p Radiation/BPH
-Flomax continued
#DVT prophylaxis
-Lovenox
#CODE status
-full code
Anticipated Discharge: 24 - 48 hours
Subjective/Interval History
-
Date of Service: January 30, 2024
mental status slightly improved today
Objective Data
-
Labs:
Laboratory Results
01/30/24
06:34
WBC 6.6
Hgb 13.6
Hct 38.5 L
Plt Count 144
Sodium 137
Potassium 4.0
Chloride 104
Carbon Dioxide 25
BUN 18
Creatinine 0.9
Glucose 103 H
Calcium 9.0
Vital Signs:
Vital Signs
Temp Pulse Resp BP Pulse Ox
98.6 F 76 20 134/66 97
01/30/24 07:32 01/30/24 07:32 01/30/24 07:32 01/30/24 07:32 01/30/24 07:32
Review of Systems
-
Unable to obtain full review of systems at this time due to: Acuity
History Source: Patient
All other systems: Not reviewed unless documented
Data Reviewed
-
CT Scan: Image personally visualized and interpreted and Report Reviewed by me
Labs: Labs Reviewed by me
[2024-01-30] MEDS: TORADOL 15 MG IV (12:54)
[2024-01-30] MEDS: ROCEPHIN 1000 MG IV (15:09)
[2024-01-30] MEDS: LYRICA 200 MG PO (15:10)
[2024-01-30] MEDS: STERILE WATER FOR INJECTION 10 ML IV (15:10)
[2024-01-30 15:19] VITALS: BP 113/64
[2024-01-30] MEDS: FLOMAX PO (17:22)
[2024-01-30] MEDS: LIPITOR PO (17:22)
[2024-01-30] MEDS: ASPIR LOW (ENTERIC COATED) PO (17:22)
[2024-01-30] MEDS: LOVENOX 40 MG SC (17:22)
--- NOTE | 2024-01-30 18:41 | PTCARENOTE ---
Patient urinating in attends. Patient bladder scanned for >319ml, Straight cath attempted twice. Patient without urine output with st. cath. Will continue to monitor incontinence amounts.
[2024-01-30 23:56] VITALS: BP 135/64
--- NOTE | 2024-01-31 00:13 | PTCARENOTE ---
Patent bladder scanned and attempted to st cath per protocol. Bladder scanned for 384cc. patient incontinent as well. But unable to st cath. Feels as if you meet resistance. unable to advance any further. Will continue to monitor.
[2024-01-31] MEDS: TORADOL 15 MG IV ×3 (03:21→19:34)
[2024-01-31 07:38] VITALS: BP 145/79
[2024-01-31 07:55] LABS: Hematocrit 36.7 % (39.0-52.0); Hemoglobin 13.1 g/dL (13.0-18.0); Mean Corp Hgb Conc. 35.7 g/dL (33.0-37.0); Mean Corpuscular Hgb 33.2 pg (27.0-31.0); Mean Corpuscular Volume 92.9 fL (80.0-94.0); Mean Platelet Volume 11.1 fL (7.4-10.4); Platelet Count 163 10^3/uL (130-400); Red Blood Cell Count 3.95 10^6/uL (4.70-6.10); White Blood Cell Count 5.6 10^3/uL (4.8-10.8)
[2024-01-31 08:25] LABS: Blood Urea Nitrogen 22 mg/dl (9-20); Calcium 9.1 mg/dl (8.4-10.2); Carbon Dioxide 26 mmol/L (22-30); Chloride 104 mmol/L (98-107); Estimated Creatinine Clearance 61 ml/min; Glucose 108 mg/dl (70-99); Sodium 138 mmol/L (135-145); eGFR > 60.00
[2024-01-31 10:05] VITALS: BP 130/61; PULSE 72
[2024-01-31 10:06] VITALS: BP 130/61; PULSE 71; O2SAT 95
[2024-01-31] MEDS: ZYLOPRIM 150 MG PO (10:15)
[2024-01-31] MEDS: LYRICA 200 MG PO (10:16)
--- NOTE | 2024-01-31 10:56 | PTOTSP ---
SPEECH THERAPY SWALLOW EVALUATION:
Patient exhibits clinical signs of oropharyngeal dysphagia, likely acutely related to metabolic encephalopathy secondary to UTI and possible NPH. Patient is at high risk for aspiration and related complications given severity of confusion. Recommend
cautious IDDSI Level 4 Puree diet, thin liquids. Medications crushed in puree. Strict aspiration precautions: 1:1 assist with meals; Only feed when awake/alert; Limit distractions; Small bites/sips; Slow rate; Monitor for signs of aspiration; Remain
upright 30 minutes after eating/drinking; Oral care 3x/day; D/c oral diet if any decline in mental or respiratory status. Speech therapy to follow, assess diet tolerance and modify as appropriate, determine indication for VSE if appropriate, monitor
CXR and labs, provide continued diagnostic swallow therapy as appropriate.
RECOMMEND:
1) IDDSI Level 4 Puree diet, thin liquids
2) Medications crushed in puree
3) Strict aspiration precautions: 1:1 assist with meals; Only feed when awake/alert; Limit distractions; Small bites/sips; Slow rate; Monitor for signs of aspiration; Remain upright 30 minutes after eating/drinking; Oral care 3x/day; D/c oral diet
if any decline in mental or respiratory status
4) Speech therapy to follow
--- NOTE | 2024-01-31 11:48 | VATNOTE ---
Per PCN, pt removed his own IV. Upon a review of chart, pt's only IV medication is toradol for chronic pain. No other IV needs. PCN to contact MD to see if we can change pain medication to PO. PCN to contact IV team if new IV is needed.
--- NOTE | 2024-01-31 13:54 | W.PN.HOSP.TC ---
Today's Communication/Plan
-
dc abx, monitor fever curve
MRI brain
Neuro consulted
Assessment / Plan
Assessment / Plan
Physical Exam
General: Well Developed, Well Nourished and No Apparent Distress
HEENT: NormoCephalic, Moist mucous membranes and Atraumatic
Respiratory: Clear
Cardiac: S1/S2 and Regular Rhythm; No Murmur or Rub
GI: Soft, Non Tender, Non Distended and Normal Bowel Sounds; No Organomegaly
Rectal: Deferred by Provider
Musculoskeletal: No Clubbing, No Cyanosis and No Edema
Skin: No Rash
Neuro: Nonfocal/grossly intact; AOOx1
Psych: Calm and Confused
# Metabolic encephalopathy
-no growth on urine culture
-Neuro consulted
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
-PT/OT consulted for fall
-monitor mental status
-speech eval
-haldol prn
-avoid benzos/sedatives
#? hydrocephalus
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
-obtain MRI
-Neuro consulted for further recs
#frequent falls
#neurogenic bladder
-chronic
-see plan above for hydrocephalus work up
--straight cath 3 times a day
# hx of Peripheral neuropathy
-Continue Lyrica
#History of SVT status post ablation/Sick sinus syndrome�s/p pacemaker
# Chronic Back Pain s/p Spinal Stimulator
-Stimulator removed yesterday
# GERD
-Continue Protonix
# Gout
-Continue allopurinol
#hxt of IBS
dicyclomine continued
#HLD
-statin continued
# Hx Prostate CA s/p Radiation/BPH
-Flomax continued
#DVT prophylaxis
-Lovenox
#CODE status
-full code
Anticipated Discharge: > 48 hours
Subjective/Interval History
-
Date of Service: January 31, 2024
still altered, fluctuating mental status
Objective Data
-
Labs:
Laboratory Results
01/31/24
06:10
WBC 5.6
Hgb 13.1
Hct 36.7 L
Plt Count 163
Sodium 138
Potassium 4.0
Chloride 104
Carbon Dioxide 26
BUN 22 H
Creatinine 1.0
Glucose 108 H
Calcium 9.1
Vital Signs:
Vital Signs
Temp Pulse Resp BP Pulse Ox
98.2 F 67 16 145/79 94
01/31/24 07:38 01/31/24 07:38 01/31/24 07:38 01/31/24 07:38 01/31/24 07:38
I&O
01/30/24 01/31/24 02/01/24
06:59 06:59 06:59
Intake Total 840 / 840
Output Total 0 / 0
Balance 840 / 840
Review of Systems
-
History Source: Patient
All other systems: Not reviewed unless documented
Physical Exam
-
General: Well Developed, Well Nourished, Comfortable and Conversant; Negative Respiratory Distress
HEENT: Normocephalic, Atraumatic, Nose Appears Normal and Ears Appear Normal; Negative Oxygen
Respiratory: Clear to Auscultation and Non Labored Respirations; Negative Accessory Resp Muscle Use
Cardiac: Regular Rhythm and S1/S2
GI: Soft, Nontender, Nondistended and Normal Bowel Sounds
Skin: Warm and Dry
Neuro: Awake, Alert and Other (mild cognitive impairment)
Psych: Calm and Intact Judgement/Insight (somewhat)
Data Reviewed
-
CT Scan: Image personally visualized and interpreted and Report Reviewed by me
Labs: Labs Reviewed by me
--- NOTE | 2024-01-31 14:36 | CM ---
Pt confused/disoriented
Spoke with pts Luz to complete assessment
Pt lives with his in a [place] community - ranch style home, 1 step to enter, FF set-up
Per pt has become more dependent over the last few weeks, no longer ambulating, cues for adl's, confused - recently hospitalized with UTI and has had Covid recently. Pts became upset during phone call - offered support.
DME - rolling walker, wheel chair
PCP - Dr Jimmy Marti ()
Pharm - [facility]
CM will cont to follow for d/c needs
Plan - anticipate SNF vs Home with HH when medically stable
[2024-01-31 15:50] VITALS: BP 130/61
[2024-01-31 16:15] LABS: Glucose - Point of Care 135 mg/dl (70-99)
[2024-01-31 17:02] LABS: % Basophils 0.5 % (0-2); % Eosinophils 3.3 % (0-6); % Immature Granulocytes 0.6 % (0-0.5); % Lymphocytes 25.5 % (20.5-51.1); % Monocytes 9.4 % (1.7-9.3); % Neutrophils 60.7 % (42.2-75.2); Absolute Eosinophils 0.2 10^3/uL (0-0.7); Absolute Lymphocytes 1.6 10^3/uL (1.2-3.4); Absolute Monocytes 0.6 10^3/uL (0.1-0.6); Absolute Neutrophils 3.9 10^3/uL (1.4-6.5); Hemoglobin 14.1 g/dL (13.0-18.0); Mean Corp Hgb Conc. 35.3 g/dL (33.0-37.0); Mean Corpuscular Volume 93.7 fL (80.0-94.0); Mean Platelet Volume 10.7 fL (7.4-10.4); Nucleated Red Blood Cells % 0 % (-); Platelet Count 188 10^3/uL (130-400); Red Blood Cell Count 4.27 10^6/uL (4.70-6.10); Red Cell Dist. Width 13.1 % (11.5-14.5); White Blood Cell Count 6.4 10^3/uL (4.8-10.8)
[2024-01-31 17:05] LABS: ALT (SGPT) 25 U/L (0-50); AST (SGOT) 28 U/L (17-59); Albumin 4.2 g/dl (3.5-5.0); Alkaline Phosphatase 80 U/L (38-126); Blood Urea Nitrogen 26 mg/dl (9-20); Calcium 9.7 mg/dl (8.4-10.2); Carbon Dioxide 29 mmol/L (22-30); Chloride 102 mmol/L (98-107); Estimated Creatinine Clearance 51 ml/min; Glucose 127 mg/dl (70-99); Potassium 4.5 mmol/L (3.5-5.1); Sodium 139 mmol/L (135-145); Total Bilirubin 0.8 mg/dl (0.2-1.3); eGFR > 60.00
[2024-01-31 17:06] LABS: Troponin I < 0.012 ng/ml
--- NOTE | 2024-01-31 17:14 | PTCARENOTE ---
called to pts room by neurologist for change in pts behavior. pt was unresponsive but breathing and with pulse. attempts were made to arouse pt but were unsuccessful. rapid response was called. pt was returned to bed. pts mental status for my shift
had been awake and alert, oriented to self only, appropriate and cooperative, ambulatory w/ rolling walker. pts conversation was confused at times but was clear. see MANAGER CAR note
[2024-01-31] MEDS: FLOMAX PO (17:30)
[2024-01-31] MEDS: ASPIR LOW (ENTERIC COATED) PO (17:30)
[2024-01-31] MEDS: LIPITOR PO (17:30)
[2024-01-31] MEDS: LOVENOX 40 MG SC (17:30)
[2024-01-31] MEDS: LYRICA PO ×2 (17:30→22:15)
--- NOTE | 2024-01-31 20:03 | CON.NEURO4 ---
Consultation - Neurology 4
-
CONSULTING PHYSICIAN: Shala
REFERRING PHYSICIAN: hospitalist
DICTATED BY: Shala
DATE/TIME OF REQUEST: 01/31/24
DATE/TIME OF CONSULTATION: 01/31/24
Reason for Consultation: altered mental status
History of Present Illness:
83 year-old male with a past medical history of dementia (diagnosed with 'aphasia' per his at [facility] by Dr. Rinaldi, referred to [facility] as well) and possible NPH (currently undergoing workup at [place] with Dr. Angulo where he
was seen recently as an outpatient) admitted with worsening confusion. His provided some details regarding his history but details of her baseline are not clear. She says he has had issues with his memory for the past few years, has been
progressively worsening since fall 2022. Started falling more frequently. Was seen in the ED recently for this. HCT was concerning for possible NPH, was referred to [facility]--saw Dr. Angulo once. Was unable to get an MRI due to spinal cord
stimulator placement--this was not working per his and was removed a few days ago. Has had chronic low back pain for about 14 years. Also has severe peripheral neuropathy. Follows with pain management--Dr. Cantu at [facility]. Has a
history of prostate cancer; states that he 'his bladder has been worsening, she has to straight cath him 3x/day.'
He was previously able to ambulate with a walker. For the past two weeks since returning from vacation he 'has had to use a wheelchair.' Thursday night he fell out of bed. He has been more confused than he was previously at his baseline.
Past Medical History
Gout
Syncope
IBS
peripheral neuropathy
GERD
Colon polyps
Hyperlipidemia
Vertigo
Prostate cancer
Kidney stones
Sick sinus syndrome
SVT
Chronic pain
Past Surgical History:
Appendectomy
Knee surgery
Carpal tunnel surgery
Pacemaker placement
Laminectomy
SVT ablation
Pain stimulator in back
jaw surgery
Social History
Tobacco: Non-smoker
Alcohol: None
Drug: None
Personal:
Living: With Family
Family History
Family History: Not pertinent
Allergies
acetaminophen [From Percocet] Allergy (Verified 01/29/24 13:14)
combative
oxycodone [From Percocet] Allergy (Verified 01/29/24 13:14)
combative
pollen extracts Allergy (Verified 01/29/24 13:14)
Hayfever
Home Medications
�Medication �Instructions �Recorded
dicyclomine 10 mg capsule 10 mg PO TIDPRN PRN abdominal 01/17/18
cramps
pantoprazole 40 mg tablet,delayed 40 mg PO BIDPRN PRN 01/17/18
release Gastrointestinal issue
simvastatin 20 mg tablet 20 mg PO QPM High cholesterol 10/05/20
tamsulosin 0.4 mg capsule 0.4 mg PO QPM Urinary issue 10/05/20
allopurinol 300 mg tablet 150 mg PO DAILY Gout 04/16/21
aspirin 81 mg tablet,delayed 81 mg PO QPM Blood clot 04/16/21
release prevention/tx
pregabalin 200 mg capsule 200 mg PO TID Neurological 04/19/22
Condition
Nad Supplement 1 tab PO DAILY Supplement 12/31/23
vitamin B complex 1 tab PO DAILY Supplement 12/31/23
cholecalciferol (vitamin D3) 100 100 mcg PO DAILY Supplement 01/29/24
mcg (4,000 unit) tablet
clindamycin HCl 300 mg capsule 300 mg PO TID Infection 01/29/24
ketoconazole 2 % shampoo 1 applic topical DAILY Skin Issues 01/29/24
Review of Symptoms:
Per the HPI. I am unable to obtain a complete review of systems�because of patient's inability to provide history.
Vital Signs
Temp Pulse Resp BP Pulse Ox
98.1 F 73 16 130/61 97
08/18/24 15:50 01/31/24 15:50 01/31/24 15:50 01/31/24 15:50 01/31/24 15:50
Lab Results
01/31/24 16:51
01/31/24 16:51
Sodium 139 mmol/L (135-145) 01/31/24 16:51
Potassium 4.5 mmol/L (3.5-5.1) 01/31/24 16:51
BUN 26 mg/dl (9-20) H 01/31/24 16:51
Glucose 127 mg/dl (70-99) H 01/31/24 16:51
Calcium 9.7 mg/dl (8.4-10.2) 01/31/24 16:51
Physical Exam:
The patient is afebrile, heart sounds S1 and S2 are regular and chest is clear to auscultation bilaterally.
NIH Stroke Scale: see attached
Neurologic Examination:
The patient was initially unresponsive, later obtunded. Did not follow any commands. Initially mute/globally aphasic. Later yelled unintelligibly while in CT. No involuntary movements. No visual gaze preference. On cranial nerve assessment,
pupils are 3 mm bilateral, round and reactive to light and accommodation. No blink to threat. There is no facial asymmetry. Muscle strength intially 0/5 diffusely; later at least 3/5 diffusely as he moved spontaneously antigravity when in CT. Deep
tendon reflexes are 1+ bilateral upper and lower extremities and Babinski is absent bilaterally. Did not follow commands for coordination testing.
Neuro Imaging:
CT Brain: No acute intracranial process. Specifically, no evidence of acute hemorrhage. There is prominence of the ventricular system with mild global atrophy, similar to prior.
CTA Head: No significant arterial stenosis. Hypoplastic right A1 segment, normal variant.
CTA Neck: No significant arterial stenosis. Atherosclerotic calcifications of the bilateral carotid bifurcations without significant stenosis.
Impression:
TORRIE RYAN is a 83 year old M with a history of dementia, possible NPH with progressively worsening falls, memory and confusion. He became globally aphasic and unresponsive just before I entered the room and I called a stroke alert. He has a
history of vasovagal syncope in the past; has a pacer in place. Vitals were stable during stroke alert. Large vessel occlusion ruled out on imaging. Seizure is a possibility.
IV Tenecteplase/IAT candidacy: no TNK as not clearly a stroke; no LVO on CTA
Recommendations:
1. Stat HCT, CTA reviewed
2. Stat EEG
3. MRI brain w/wo ordered to be done tomorrow
4. labs--B12, TSH, RPR, CRP, ESR, B1
5. continue ASA 81mg daily, statin; switch to rectal aspirin if mental status does not improve.
If above testing does not explain his abrupt worsening in mental status, consider LP.
Needs records from [facility] (Dr. Rinaldi), [facility] and [place] (Dr. Angulo) where he was previously been evaluated to clarify his past diagnosis/baseline.
Discussed patient care with: patient's , nursing, rapid response team, hospitalist, radiology
Critical care time 80 mins
NIH Stroke Scale
NIH Stroke Score
Date of Subsequent NIH Scale: 01/31/24
Time of Subsequent NIH Scale: 16:15
Level of Consciousness: 3 - Totally unresponsive
LOC Questions: 2-Neither correct
LOC Commands: 2-Performs neither correctly
Best Horizontal Gaze: 0-Normal
Visual Hull: 3=Bilateral hemianopia
Facial Palsy: 0=Normal, symmetrical
Motor - Right Arm: 4=No movement
Motor - Left Arm: 4=No movement
Motor - Right Le-No movement
Motor - Left Le-No movement
Limb Ataxia: 0-Absent
Sensation: 2-Severe loss
Best Language: 3-Mute/global aphasia
Dysarthria: 2-Severe slurring
Extinction and Inattention: 0-No abnormality
Total Score:: 33
[2024-01-31 21:02] LABS: Erythrocyte Sed Rate 48 mm/hour (0-20)
[2024-01-31 22:10] LABS: TSH Reflex To Free T4 2.74 uIU/ml (0.47-4.68)
[2024-01-31 22:29] LABS: Vitamin B12 356 pg/ml (239-931)
--- NOTE | 2024-01-31 22:58 | EEG.RPT ---
Electroencephalogram Report
Recording
Date of EE01/31/24
Type of EEG: Routine
Length of EEG recordin mins
Done with Video Recording: Yes
Patient Status: Inpatient
Recording Conditions: Awake, Drowsy, Moving and Confused
Hyperventilation Performed: No
Photic Stimulation Performed: Yes
Report
METHODS
A 21 channel digitized electroencephalogram was performed at [facility]. The 10/20 international system of electrode placement was used. In addition to EEG, the patient was monitored for EKG. The duration of the recording was 30 minutes.
BACKGROUND
During the awake state, with the eyes closed, the background was diffusely slow to 6-7Hz with superimposed intermittent bifrontal triphasic waves and frontal intermittent rhythmic delta activity (FIRDA).
PHOTIC STIMULATION
Photic stimulation using a step-barnett increase in photic frequency varying from 1-31 Hertz resulted in no driving responses but no appearance of abnormal activity.
CLINICAL EVENTS
None
INTERPRETATION AND CLINICAL CORRELATION
This EEG is abnormal due to the presence of diffuse slowing to 6-7Hz with superimposed intermittent bifrontal triphasic waves and frontal intermittent rhythmic delta activity (FIRDA). No clear seizures were noted. The study was limited at times by
artifact from muscle/movement and the patient trying to pull off leads.
The study is consistent with moderate diffuse cerebral dysfunction; triphasics can be seen in metabolic encephalopathies. FIRDA can be seen in dementia and metabolic encephalopathies.
[2024-01-31 23:41] VITALS: BP 123/57
[2024-02-01 06:17] LABS: Blood Urea Nitrogen 25 mg/dl (9-20); Calcium 9.2 mg/dl (8.4-10.2); Carbon Dioxide 22 mmol/L (22-30); Chloride 106 mmol/L (98-107); Estimated Creatinine Clearance 68 ml/min; Glucose 103 mg/dl (70-99); Potassium 4.4 mmol/L (3.5-5.1); Sodium 137 mmol/L (135-145); eGFR > 60.00
[2024-02-01 07:19] VITALS: BP 129/67
--- NOTE | 2024-02-01 11:31 | PTCARENOTE ---
Pt is not cooperating with taking morning medications. Pt also uninterested and refusing food, did take some sips of lemonade.
[2024-02-01] MEDS: LYRICA PO ×3 (11:32→22:27)
[2024-02-01] MEDS: ZYLOPRIM PO (11:32)
[2024-02-01 11:47] LABS: Hematocrit 38.1 % (39.0-52.0); Hemoglobin 13.4 g/dL (13.0-18.0); Mean Corp Hgb Conc. 35.2 g/dL (33.0-37.0); Mean Corpuscular Volume 93.8 fL (80.0-94.0); Mean Platelet Volume 10.6 fL (7.4-10.4); Platelet Count 192 10^3/uL (130-400); Red Blood Cell Count 4.06 10^6/uL (4.70-6.10); Red Cell Dist. Width 13.1 % (11.5-14.5); White Blood Cell Count 5.2 10^3/uL (4.8-10.8)
[2024-02-01 11:54] LABS: Ammonia < 9 umol/L (9-30)
--- NOTE | 2024-02-01 12:37 | W.PN.HOSP.TC ---
Today's Communication/Plan
-
MRI brain today
Assessment / Plan
Assessment / Plan
# Metabolic encephalopathy vs worsening of dementia
-no growth on urine culture
-Neuro consulted
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
-PT/OT consulted for fall
-speech eval
-haldol prn
-avoid benzos/sedatives
#? hydrocephalus
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
-obtain MRI
-Neuro consulted for further recs
#frequent falls
#neurogenic bladder
-chronic
-see plan above for hydrocephalus work up
--cw straight cath 3 times a day
# hx of Peripheral neuropathy
-Continue Lyrica
#History of SVT status post ablation/Sick sinus syndrome�s/p pacemaker
# Chronic Back Pain s/p Spinal Stimulator
-Stimulator removed yesterday
# GERD
-Continue Protonix
# Gout
-Continue allopurinol
#hxt of IBS
dicyclomine continued
#HLD
-statin continued
# Hx Prostate CA s/p Radiation/BPH
-Flomax continued
#DVT prophylaxis
-Lovenox
#CODE status
-full code
DW at bedside
Anticipated Discharge: 24 - 48 hours
Subjective/Interval History
-
Date of Service: February 01, 2024
Pleasantly confused with intermittent aphasia.
Objective Data
-
Labs:
Laboratory Results
02/01/24 02/01/24
05:27 11:33
WBC 5.2
Hgb 13.4
Hct 38.1 L
Plt Count 192
Sodium 137
Potassium 4.4
Chloride 106
Carbon Dioxide 22
BUN 25 H
Creatinine 0.9
Glucose 103 H
Calcium 9.2
Vital Signs:
Vital Signs
Temp Pulse Resp BP Pulse Ox
98.0 F 68 19 129/67 95
02/01/24 07:19 02/01/24 07:19 02/01/24 07:19 02/01/24 07:19 02/01/24 07:19
I&O
01/31/24 02/01/24 02/02/24
06:59 06:59 06:59
Intake Total 840 / 840 120 / 120
Output Total 0 / 0
Balance 840 / 840 120 / 120
Review of Systems
-
Unable to obtain full review of systems at this time due to: Dementia
Physical Exam
-
General: No Apparent Distress
HEENT: Moist Mucous Membranes
Respiratory: Clear to Auscultation
Cardiac: Regular Rhythm and S1/S2
GI: Soft
Musculoskeletal: No Edema
Neuro: Awake and Alert; Negative Oriented, No Motor Deficits (Difficult exam but moves all 4 limbs spontaneously) or Tremors
Data Reviewed
-
Labs: Labs Reviewed by me
--- NOTE | 2024-02-01 14:03 | W.PN.NEURO.1 ---
Today's Communication / Plan
-
Awaiting MRI head
F/u [facility]
Neuro Assessment/Plan
Assessment
83 yr. old male with h/o NPH chronic lumbar radiculopathy on Lyrica 600mg admitted with worsening confusion and cognitive impairment
Plan
MRI Brain without
Subjective/Objective
Subjective Data
Date of Service: February 01, 2024
Pat awake but confused
Objective Data
Vital Signs
Temp Pulse Resp BP Pulse Ox
36.7 C 68 19 129/67 95
02/01/24 07:19 02/01/24 07:19 02/01/24 07:19 02/01/24 07:19 02/01/24 07:19
Lab Results
02/01/24 11:33
02/01/24 05:27
PT Cancelled 01/31/24 16:51
INR Cancelled 01/31/24 16:51
APTT Cancelled 01/31/24 16:51
Sodium 137 mmol/L (135-145) 02/01/24 05:27
Potassium 4.4 mmol/L (3.5-5.1) 02/01/24 05:27
BUN 25 mg/dl (9-20) H 02/01/24 05:27
Glucose 103 mg/dl (70-99) H 02/01/24 05:27
Calcium 9.2 mg/dl (8.4-10.2) 02/01/24 05:27
Vitamin B12 356 pg/ml (239-931) 01/31/24 16:51
Patient Allergies
acetaminophen [From Percocet] Allergy (Verified 01/29/24 13:14)
combative
oxycodone [From Percocet] Allergy (Verified 01/29/24 13:14)
combative
pollen extracts Allergy (Verified 01/29/24 13:14)
Hayfever
[2024-02-01] MEDS: LYRICA 200 MG PO (14:56)
[2024-02-01 15:10] VITALS: BP 124/63
--- NOTE | 2024-02-01 16:06 | PTCARENOTE ---
Nurse transplant case manager spoke with pt's about not feeding patient whole food from cafeteria while he is on a pureed diet as he is at a risk for aspiration. Nurse transplant case manager also spoke with about her giving him Tylenol from her purse, and for her to not
give any home medications to him anymore because we need to know for his safety what he should take through [facility].
[2024-02-01] MEDS: LIPITOR 10 MG PO (17:36)
[2024-02-01] MEDS: LOVENOX 40 MG SC (17:36)
[2024-02-01] MEDS: FLOMAX 0.4 MG PO (17:36)
[2024-02-01] MEDS: ASPIR LOW (ENTERIC COATED) 81 MG PO (17:36)
[2024-02-01 23:16] VITALS: BP 149/59
[2024-02-02 07:00] VITALS: BP 117/57
[2024-02-02] MEDS: LYRICA PO (08:28)
[2024-02-02] MEDS: ZYLOPRIM PO (08:28)
[2024-02-02] MEDS: TYLENOL 650 MG PO (11:48)
--- NOTE | 2024-02-02 12:46 | CM ---
Case management following for discharge planning
Chart reviewed. Met with pts at bedside
Updated regarding SNF - [facility] - per Care at facility - no beds available. Requested other options
Pts requesting [facility] - referral sent in Care Port
CM will continue to follow for discharge needs
Plan - anticipate SNF when medically ready
[2024-02-02 12:56] VITALS: BP 128/88; PULSE 74; O2SAT 96
[2024-02-02 14:41] LABS: Hematocrit 37.8 % (39.0-52.0); Hemoglobin 13.6 g/dL (13.0-18.0); Mean Corpuscular Hgb 33.5 pg (27.0-31.0); Mean Corpuscular Volume 93.1 fL (80.0-94.0); Mean Platelet Volume 10.2 fL (7.4-10.4); Platelet Count 197 10^3/uL (130-400); Red Blood Cell Count 4.06 10^6/uL (4.70-6.10); Red Cell Dist. Width 12.8 % (11.5-14.5); White Blood Cell Count 5.1 10^3/uL (4.8-10.8)
[2024-02-02 15:00] VITALS: BP 111/60
[2024-02-02 15:00] LABS: Blood Urea Nitrogen 19 mg/dl (9-20); Calcium 9.2 mg/dl (8.4-10.2); Carbon Dioxide 22 mmol/L (22-30); Chloride 104 mmol/L (98-107); Estimated Creatinine Clearance 77 ml/min; Glucose 121 mg/dl (70-99); Potassium 4.3 mmol/L (3.5-5.1); Sodium 137 mmol/L (135-145); eGFR > 60.00
--- NOTE | 2024-02-02 15:14 | W.PN.NEURO.1 ---
Documented by User: Ree Hardy NP 02/02/24 15:50
Today's Communication / Plan
-
.
Neuro Assessment/Plan
Assessment
TORRIE RYAN is a 83 year old M with a history of dementia, possible NPH with progressively worsening falls, memory and confusion. He became globally aphasic and unresponsive on initial neurology exam on 01/31/24 and a stroke alert was activated.
He has a history of vasovagal syncope in the past; has a pacer in place. Vitals were stable during stroke alert. Large vessel occlusion ruled out on imaging. Per outpatient evaluations by Cardiology in October 2023, patient was having significant
cognitive issues at that time and was not responding to Aricept or Namenda. Was requiring a wheelchair at that time for ambulation.
-MRI brain 02/02/24: No acute intracranial abnormality. There is prominence of the ventricular system which does appears slightly out of proportion to the adjacent volume loss and suggestion of sulcal crowding along the vertex which can be seen with
normal pressure hydrocephalus in the correct clinical setting. This is only slightly increased from 2020. Sequelae of mild/moderate microangiopathy. Global parenchymal volume loss including the bilateral medial temporal lobes.
-EEG 01/31/24: This EEG is abnormal due to the presence of diffuse slowing to 6-7Hz with superimposed intermittent bifrontal triphasic waves and frontal intermittent rhythmic delta activity (FIRDA). No clear seizures were noted. The study was
limited at times by artifact from muscle/movement and the patient trying to pull off leads. The study is consistent with moderate diffuse cerebral dysfunction; triphasics can be seen in metabolic encephalopathies. FIRDA can be seen in dementia and
metabolic encephalopathies.
I. TME likely exacerbating baseline dementia.
II. MRI negative for acute abnormality. Somewhat suggestive of NPH but not significantly worsened since MRI brain 2020.
III. Vitamin B12 deficiency.
Plan
-Continue home aspirin 81mg daily.
-Continue outpatient workup for NPH and dementia; patient would not be able to participate in large volume LP evaluation as an inpatient due to lack of cooperation.
-Vitamin B12 level is low at 356. Initiate cyanocobalamin 1000mcg PO daily.
-B1 level pending.
-Case management consult for assistance with discharge planning, unclear if will be able to care for him at home.
-DVT prophylaxis.
Subjective/Objective
Subjective Data
Date of Service: February 02, 2024
Patient continues with severe confusion but is alert. Does not provide answers to direct questions for ROS, begins talking about aspects of hunting when asked direct questions.
Objective Data
Vital Signs
Temp Pulse Resp BP Pulse Ox
98.4 F 66 14 117/57 98
02/02/24 07:00 02/02/24 07:00 02/02/24 07:00 02/02/24 07:00 02/02/24 07:00
Lab Results
02/02/24 14:31
02/02/24 14:31
PT Cancelled 01/31/24 16:51
INR Cancelled 01/31/24 16:51
APTT Cancelled 01/31/24 16:51
Sodium 137 mmol/L (135-145) 02/02/24 14:31
Potassium 4.3 mmol/L (3.5-5.1) 02/02/24 14:31
BUN 19 mg/dl (9-20) 02/02/24 14:31
Glucose 121 mg/dl (70-99) H 02/02/24 14:31
Calcium 9.2 mg/dl (8.4-10.2) 02/02/24 14:31
Vitamin B12 356 pg/ml (239-931) 01/31/24 16:51
Patient Allergies
acetaminophen [From Percocet] Allergy (Verified 01/29/24 13:14)
combative
oxycodone [From Percocet] Allergy (Verified 01/29/24 13:14)
combative
pollen extracts Allergy (Verified 01/29/24 13:14)
Hayfever
Review of Systems
-
Unable to obtain full review of systems at this time due to: Dementia
Physical Exam
-
General: No Apparent Distress
Eyes: No Ptosis and PERRLA
HEENT: Normocephalic and Atraumatic
Neck: Full Range of Motion
Respiratory: No Dyspnea
GI: Non-distended
Extremities: No Clubbing, No Cyanosis and No Edema
Psych: Confused
Extended Neurological Exam
Attention Span & Concentration: Awake, Alert, Interactive and Unable to Perform 2 Step Request
Memory: Unable to Recall
Tremor: Hand Tremor Absent and Head Tremor Absent
Involuntary Movement: None
Speech: Quality Unremarkable, Quantity Unremarkable and Rate of Production Unremarkable
Cranial Nerve II: Left Eye: Pupillary Reactivity Unremarkable, Pupillary Size Unremarkable and Visual Hull Intact
Cranial Nerve II: Right Eye: Pupillary Reactivity Unremarkable, Pupillary Size Unremarkable and Visual Hull Intact
Cranial Nerves III, IV, : Extraocular Movement: Extraocular Movement Full in all Directions
Cranial Nerve VII: Facial Symmetry: Normal Facial Symmetry
Cranial Nerve VIII: Hearing: Unremarkable Hearing to Normal Conversational Volume
Cranial Nerves IX, X: Palate Movement: Palate Elevation Symmetric
Cranial Nerve XII: Tongue Protusion: Midline
Muscle Strength, Overall: Full Throughout
Muscle Bulk & Tone: Bulk Unremarkable and Tone Unremarkable
Pronator Drift: Unable to Assess
Cold Sensation: Unable to Assess
Vibration Sensation: Unable to Assess
Touch Sensation: Unable to Assess
Coordination: Feydly-ctrd-dwvjig Testing Unremarkable
Babinski Sign: Absent Bilaterally
Data Reviewed
-
CT-A: Report Reviewed and Image Reviewed
CT Head: Report Reviewed and Image Reviewed
MRI Head: Report Reviewed and Image Reviewed
EEG: Report Reviewed
Labs: Report Reviewed
Reviewed with: Physician and Patient
Medications
-
Active Medications
Generic Name Dose Route Start Last Admin
Trade Name Freq PRN Reason Stop Dose Admin
Acetaminophen 650 mg 02/01/24 15:04 02/02/24 11:48
Acetaminophen 325 Mg Tablet PO 02/29/24 15:03 650 mg
Q4HPRN PRN Administration
mild pain /fever >100.4
Allopurinol 150 mg 01/30/24 08:00 02/02/24 08:28
Allopurinol 300 Mg Tablet PO 02/27/24 07:59 Not Given
DAILY MOOSE
Aspirin 81 mg 01/29/24 18:00 02/01/24 17:36
Aspirin 81 Mg (Enteric Coated) Tablet PO 02/26/24 17:59 81 mg
QPM MOOSE Administration
Atorvastatin Calcium 10 mg 01/29/24 18:00 02/01/24 17:36
Atorvastatin (Lipitor) 10 Mg Tablet PO 02/26/24 17:59 10 mg
QPM MOOSE Administration
Bisacodyl 10 mg 01/29/24 17:41
Bisacodyl 10 Mg Rectal Suppository RECTAL 02/26/24 17:40
[id number] PRN
constipation
Dicyclomine HCl 10 mg 01/29/24 17:41
Dicyclomine 10 Mg Capsule PO 02/26/24 17:40
TIDPRN PRN
abdominal cramps
Enoxaparin Sodium 40 mg 01/29/24 18:00 02/01/24 17:36
Enoxaparin Sodium 40 Mg/0.4 Ml Syringe SC 02/26/24 17:59 40 mg
QPM MOOSE Administration
Ketorolac Tromethamine 15 mg 01/29/24 17:41 01/31/24 19:34
Ketorolac 15 Mg/Ml Injection IV 02/03/24 17:40 15 mg
Q6HPRN PRN Administration
moderate pain
Pantoprazole Sodium 40 mg 01/29/24 17:41
Pantoprazole 40 Mg Delayed Release Tablet PO 02/26/24 17:40
BIDPRN PRN
Gastrointestinal issue
Polyethylene Glycol 17 grams 01/29/24 17:41
Polyethylene Glycol Powder 17 Grams Packet PO 02/26/24 17:40
DAILYPRN PRN
constipation
Pregabalin 200 mg 01/29/24 22:00 02/02/24 08:28
Pregabalin 100 Mg Capsule PO 02/26/24 21:59 Not Given
TID MOOSE
Senna/Docusate Sodium 1 tablet 01/29/24 17:41
Docusate W/Senna (Juju-Colace) Tablet PO 02/26/24 17:40
BIDPRN PRN
constipation
Sodium Chloride 0 flush 01/29/24 18:00
Sodium Chloride 0.9% (Flush) Syringe IV 02/26/24 17:59
PER PROTOCOL MOOSE
Tamsulosin HCl 0.4 mg 01/29/24 18:00 02/01/24 17:36
Tamsulosin 0.4 Mg Capsule PO 02/26/24 17:59 0.4 mg
QPM MOOSE Administration
Home Medications
�Medication �Instructions �Recorded
dicyclomine 10 mg capsule 10 mg PO TIDPRN PRN abdominal 01/17/18
cramps
pantoprazole 40 mg tablet,delayed 40 mg PO BIDPRN PRN 01/17/18
release Gastrointestinal issue
simvastatin 20 mg tablet 20 mg PO QPM High cholesterol 10/05/20
tamsulosin 0.4 mg capsule 0.4 mg PO QPM Urinary issue 10/05/20
allopurinol 300 mg tablet 150 mg PO DAILY Gout 04/16/21
aspirin 81 mg tablet,delayed 81 mg PO QPM Blood clot 04/16/21
release prevention/tx
pregabalin 200 mg capsule 200 mg PO TID Neurological 04/19/22
Condition
Nad Supplement 1 tab PO DAILY Supplement 12/31/23
vitamin B complex 1 tab PO DAILY Supplement 12/31/23
cholecalciferol (vitamin D3) 100 100 mcg PO DAILY Supplement 01/29/24
mcg (4,000 unit) tablet
clindamycin HCl 300 mg capsule 300 mg PO TID Infection 01/29/24
ketoconazole 2 % shampoo 1 applic topical DAILY Skin Issues 01/29/24

Documented by User: César Franco MD 02/04/24 06:57
Today's Communication / Plan
-
83 yr. old male with h/o worsening dementia and NPH who is wheelchair bound awaiting transfer to SNF or ICF
Neuro Assessment/Plan
Assessment
TORRIE RYAN is a 83 year old M with a history of dementia, possible NPH with progressively worsening falls, memory and confusion. He became globally aphasic and unresponsive on 01/31/24 and stroke alert was activated. He has a history of
vasovagal syncope in the past; has a pacer in place. Vitals were stable during stroke alert. Large vessel occlusion ruled out on imaging. Per outpatient evaluations by Cardiology in October 2023, patient was having significant cognitive issues at that
time and was not improving with Aricept or Namenda. And requiring a wheelchair at that time for ambulation.
-MRI brain 02/02/24: No acute intracranial abnormality. There is prominence of the ventricular system which does appears out of proportion to the adjacent volume loss and suggestion of sulcal crowding along the vertex which can be seen with normal
pressure hydrocephalus in the correct clinical setting. This is only slightly increased from 2020. Sequelae of mild/moderate microangiopathy. Global parenchymal volume loss including the bilateral medial temporal lobes.
-EEG 01/31/24: This EEG is abnormal due to the presence of diffuse slowing to 6-7Hz with superimposed intermittent bifrontal triphasic waves and frontal intermittent rhythmic delta activity (FIRDA). No clear seizures were noted. The study was
limited at times by artifact from muscle/movement and the patient trying to pull off leads. The study is consistent with moderate diffuse cerebral dysfunction; triphasics can be seen in metabolic encephalopathies. FIRDA can be seen in dementia and
metabolic encephalopathies.
I. Encephalopathy exacerbating underlying baseline dementia.
II. MRI negative for acute abnormality. Somewhat suggestive of NPH but not significantly worsened since MRI brain 2020.
III. Vitamin B12 deficiency.
--- NOTE | 2024-02-02 15:16 | W.PN.HOSP.TC ---
Today's Communication/Plan
-
Await further neuro input
Assessment / Plan
Assessment / Plan
# Metabolic encephalopathy vs worsening of dementia
-no growth on urine culture
-Neuro consulted
-MRI
No acute intracranial abnormality.
There is prominence of the ventricular system which does appears slightly out of proportion to the adjacent volume loss and suggestion of sulcal crowding along the vertex which can be seen with normal pressure hydrocephalus in the correct clinical
setting. This is only slightly increased from 2020.
Sequelae of mild/moderate microangiopathy. Global parenchymal volume loss including the bilateral medial temporal lobes.
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
Will ask neuro to eval for NPH
-PT/OT recommends SNF
-speech eval noted . Pt adamant that he is able to tolerate regular diet and dont want any speech therapies.
-haldol prn
-avoid benzos/sedatives
#? hydrocephalus
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
- MRI as above
-Neuro consulted for further recs
#frequent falls
#neurogenic bladder
-chronic
-see plan above for hydrocephalus work up
--cw straight cath 3 times a day
# hx of Peripheral neuropathy
-Continue Lyrica
#History of SVT status post ablation/Sick sinus syndrome�s/p pacemaker
# Chronic Back Pain s/p Spinal Stimulator
-Stimulator removed yesterday
# GERD
-Continue Protonix
# Gout
-Continue allopurinol
#hxt of IBS
dicyclomine continued
#HLD
-statin continued
# Hx Prostate CA s/p Radiation/BPH
-Flomax continued
#DVT prophylaxis
-Lovenox
#CODE status
-full code
DW at bedside - wants him transferred to [facility]
Will dw neuro here and go from there
Anticipated Discharge: > 48 hours
Subjective/Interval History
-
Date of Service: February 02, 2024
at bedside-sees no improvement in his cognitive behavior.
Patient pleasantly confused. Not much history is available from the patient. He follows simple commands. has been feeding him solid diet ever since his admission and apparently has been tolerating it well without any issues. He had
sandwiches , chips and food without any issues.
Objective Data
-
Labs:
Laboratory Results
02/02/24
14:31
WBC 5.1
Hgb 13.6
Hct 37.8 L
Plt Count 197
Sodium 137
Potassium 4.3
Chloride 104
Carbon Dioxide 22
BUN 19
Creatinine 0.8
Glucose 121 H
Calcium 9.2
Vital Signs:
Vital Signs
Temp Pulse Resp BP Pulse Ox
98.4 F 66 14 117/57 98
02/02/24 07:00 02/02/24 07:00 02/02/24 07:00 02/02/24 07:00 02/02/24 07:00
I&O
02/01/24 02/02/24 02/03/24
06:59 06:59 06:59
Intake Total 120 / 120 100 / 100
Output Total 700 / 700 500 / 500
Balance 120 / 120 -600 / -600 -500 / -500
Review of Systems
-
Unable to obtain full review of systems at this time due to: Dementia
Physical Exam
-
General: Comfortable
HEENT: Moist Mucous Membranes
Respiratory: Clear to Auscultation
Cardiac: Regular Rhythm and S1/S2
GI: Soft
Neuro: Awake, Alert and Oriented (person)
Psych: Calm and Confused; Negative Agitated
Data Reviewed
-
MRI: Report Reviewed by me (MRI brain)
[2024-02-02] MEDS: LYRICA 200 MG PO ×2 (15:37→21:35)
--- NOTE | 2024-02-02 16:12 | PTCARENOTE ---
Patient continues to spit out pills with staff. He is more receptive to swallowing pills when his is here giving them to him but it is still a difficult task. Pt was somnolent earlier in shift but is now alert, out of bed to chair, eating a
sandwich and singing at times. He remains only oriented to self, needs to be cued for almost every task- swallowing pills, steps to and from bed, standing up. Mental status hinders his ambulation more than his physical capability.
[2024-02-02] MEDS: LIPITOR 10 MG PO (17:09)
[2024-02-02] MEDS: LOVENOX 40 MG SC (17:09)
[2024-02-02] MEDS: ASPIR LOW (ENTERIC COATED) 81 MG PO (17:09)
[2024-02-02] MEDS: FLOMAX 0.4 MG PO (17:09)
[2024-02-02 18:41] LABS: Syphilis/T. pallidum Ab Reflex Negative (Negative)
[2024-02-02 20:19] VITALS: BP 116/59
[2024-02-03 00:05] VITALS: BP 105/59
--- NOTE | 2024-02-03 04:34 | DOWNTIME ---
There was a [employer] Client Shrinking Machine Operator Downtime on 02/03/2024 from 0100 to 02/03/2024 at 0252. Downtime documentation of patient's care, including medication administrations, has been reconciled in the electronic record per guidelines. Refer to the
patient's paper chart under the miscellaneous tab to see printed paper medication records and downtime forms.
[2024-02-03 07:01] VITALS: BP 111/64
--- NOTE | 2024-02-03 09:38 | PN.CDI ---
CDI
- -
CDI:
Physician Documentation Request
Admit Date: 01/29/24 16:14
Dear Doctor Doug,
02/01 Neurology progress note states 'TME likely exacerbating baseline dementia'
02/01 hospitalist note states 'Metabolic encephalopathy vs worsening of dementia'
In an attempt to clarify potentially conflicting documentation, please clarify the encephalopathy type:
Toxic metabolic
Metabolic
Other
Use of terms such as suspected, likely, concern for, or probable (associated with a specific diagnosis that is being evaluated, monitored, or treated as if it exists) are acceptable and can be coded in the inpatient setting, when documented at the
time of discharge.
Thank you,
Vanita England RN, BSN
CDI Specialist
tiger text
Please use your independent medical judgment in providing your response.
[2024-02-03 09:45] LABS: Hematocrit 36.8 % (39.0-52.0); Hemoglobin 13.1 g/dL (13.0-18.0); Mean Corp Hgb Conc. 35.6 g/dL (33.0-37.0); Mean Corpuscular Hgb 33.4 pg (27.0-31.0); Mean Corpuscular Volume 93.9 fL (80.0-94.0); Mean Platelet Volume 10.1 fL (7.4-10.4); Platelet Count 169 10^3/uL (130-400); Red Blood Cell Count 3.92 10^6/uL (4.70-6.10); Red Cell Dist. Width 12.8 % (11.5-14.5); White Blood Cell Count 4.5 10^3/uL (4.8-10.8)
[2024-02-03] MEDS: LYRICA 200 MG PO ×2 (09:53→17:03)
[2024-02-03] MEDS: ZYLOPRIM PO (10:08)
[2024-02-03] MEDS: VITAMIN B-12 PO (10:08)
[2024-02-03 10:14] LABS: Blood Urea Nitrogen 17 mg/dl (9-20); Carbon Dioxide 30 mmol/L (22-30); Chloride 104 mmol/L (98-107); Estimated Creatinine Clearance 77 ml/min; Glucose 104 mg/dl (70-99); Potassium 4.3 mmol/L (3.5-5.1); Sodium 138 mmol/L (135-145); eGFR > 60.00
--- NOTE | 2024-02-03 11:10 | PTCARENOTE ---
Due for straight cath per order. Bladder scanned for 112ml. Straight cath not done at this time. Encouraged PO intake, will reassess bladder scan.
[2024-02-03 14:31] VITALS: BP 152/66
--- NOTE | 2024-02-03 14:45 | W.PN.HOSP.TC ---
Today's Communication/Plan
-
DC planning
Assessment / Plan
Assessment / Plan
# Confusion -worsening - metabolic encephalopathy excluded. Concern is if it is related to NPH or progressive dementia
-no growth on urine culture
-Neuro consulted
-MRI shows-
No acute intracranial abnormality.
There is prominence of the ventricular system which does appears slightly out of proportion to the adjacent volume loss and suggestion of sulcal crowding along the vertex which can be seen with normal pressure hydrocephalus in the correct clinical
setting. This is only slightly increased from 2020.
Sequelae of mild/moderate microangiopathy. Global parenchymal volume loss including the bilateral medial temporal lobes.
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
- Neuro following
-PT/OT recommends SNF
-speech eval noted . Pt adamant that he is able to tolerate regular diet and dont want any speech therapies.
-haldol prn
-avoid benzos/sedatives
#? hydrocephalus
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
- MRI as above
-Neuro following
#frequent falls
#neurogenic bladder
-chronic
-see plan above for hydrocephalus work up
--cw straight cath 3 times a day
# hx of Peripheral neuropathy
-Continue Lyrica
#History of SVT status post ablation/Sick sinus syndrome�s/p pacemaker
# Chronic Back Pain s/p Spinal Stimulator
-Stimulator removed yesterday
# GERD
-Continue Protonix
# Gout
-Continue allopurinol
#hxt of IBS
dicyclomine continued
#HLD
-statin continued
# Hx Prostate CA s/p Radiation/BPH
-Flomax continued
#DVT prophylaxis
-Lovenox
#CODE status
-full code
DW neuro -recommends transfer to [place]
DW Dr Keating , neurology deputy coroner - recommends LP large volume removal and assess gait and if positive then consideration will be given for MACHINE SET UP shunt. They usually do this as an outpatient. Circled back with the our neurologist Dr. Franco who is
going to speak with a family. Depending on discussions will start DC plan.
Anticipated Discharge: Within 24 hours
Subjective/Interval History
-
Date of Service: February 03, 2024
Remains pleasantly confused.
In fact is singing in [place] happily.
HERLINDA RN - no signficant agitation issues.
Objective Data
-
Labs:
Laboratory Results
02/03/24
09:25
WBC 4.5 L
Hgb 13.1
Hct 36.8 L
Plt Count 169
Sodium 138
Potassium 4.3
Chloride 104
Carbon Dioxide 30
BUN 17
Creatinine 0.8
Glucose 104 H
Calcium 9.0
Vital Signs:
Vital Signs
Temp Pulse Resp BP Pulse Ox
98.0 F 66 16 152/66 96
02/03/24 14:31 02/03/24 14:31 02/03/24 14:31 02/03/24 14:31 02/03/24 14:31
I&O
02/02/24 02/03/24 02/04/24
06:59 06:59 06:59
Intake Total 100 / 100 480 / 480
Output Total 700 / 700 800 / 800 250 / 250
Balance -600 / -600 -320 / -320 -250 / -250
Review of Systems
-
Unable to obtain full review of systems at this time due to: Dementia
Physical Exam
-
General: Comfortable
Respiratory: Non Labored Respirations; Negative Accessory Resp Muscle Use
Cardiac: Regular Rhythm and S1/S2; Negative Tachycardic
GI: Soft, Nontender, Nondistended and Normal Bowel Sounds
Neuro: Awake, Alert and Oriented (self)
Psych: Calm and Confused; Negative Agitated
Data Reviewed
-
Labs: Labs Reviewed by me
--- NOTE | 2024-02-03 15:32 | CM ---
Case management following for discharge planning
Chart reviewed and spoke with pts
PT recs SNF - referrals sent in [facility] - accepted at [facility] pend bed availability; no beds available at [facility]
Poss transfer to [place] - awaiting neuro input - prefers transfer
Plan - TBD pending team plans
[2024-02-03 15:59] VITALS: BP 141/55; PULSE 61; O2SAT 98
[2024-02-03 16:01] VITALS: BP 141/55; PULSE 62; O2SAT 97
[2024-02-03] MEDS: LOVENOX 40 MG SC (17:04)
[2024-02-03] MEDS: LIPITOR 10 MG PO (17:07)
[2024-02-03] MEDS: FLOMAX 0.4 MG PO (17:07)
[2024-02-03] MEDS: ASPIR LOW (ENTERIC COATED) 81 MG PO (17:08)
[2024-02-03] MEDS: LYRICA PO (21:34)
--- NOTE | 2024-02-04 00:10 | PTCARENOTE ---
Bed alarm triggered this RN and additional RN at bedside patient sitting on side of bed. Instructed to move up in the bed patient stated that 'I have to go find my ', unable to redirect patient to time and place . Patient increasingly agitated
and raising voice. Patient stated ' Your not going to make me do anything unless you get the police involved'. RN's at bed side instructed patient in a calm manner to move up in the bed. Patient did not verbalize any specific needs, drink offered
and bathroom offered. Pt angry attempted to swing back of hand at RN. Naima bush called. Security , NEIGHBORHOOD PLANNER, and nursing vehicle maintenance supervisor at bedside. Security assisted pt back into bed. New Haloperidol order provided, not administered, will reevaluate.
[2024-02-04 08:28] VITALS: BP 106/70
--- NOTE | 2024-02-04 08:44 | PN.CDI ---
CDI
- -
CDI:
Physician Documentation Request
Admit Date: 01/29/24 16:14
Dear Doctor Doug,
02/02 progress note states 'Confusion -worsening - metabolic encephalopathy excluded. Concern is if it is related to NPH or progressive dementia. MRI shows....
Sequelae of mild/moderate microangiopathy. Global parenchymal volume loss including the bilateral medial temporal lobes'
02/03 Nursing note states 'Instructed to move up in the bed patient stated that 'I have to go find my ', unable to redirect patient to time and place....Pt angry attempted to swing back of hand at RN. Code purple called......New Haloperidol order
provided....'
If possible, please further clarify type of Alzheimer's and any associated manifestations:
Dementia Type Associated Manifestations
Alzheimer's Dementia without behavioral disturbance
Senile Dementia with behavioral disturbances
- Aggressive behavior
vascular - Combative behavior
Lewy body - Violent behavior
Other Dementia with delirium
- Confusion
- Sundowning
Dementia with wandering
Other, please specify
No associated manifestations
Use of terms such as suspected, likely, concern for, or probable (associated with a specific diagnosis that is being evaluated, monitored, or treated as if it exists) are acceptable and can be coded in the inpatient setting, when documented at the
time of discharge.
Thank you,
Vanita England RN, BSN
CDI Specialist
tiger text
Please use your independent medical judgment in providing your response.
[2024-02-04] MEDS: LYRICA 200 MG PO ×2 (13:21→17:32)
[2024-02-04] MEDS: VITAMIN B-12 1000 MCG PO (13:22)
[2024-02-04] MEDS: ZYLOPRIM 150 MG PO (13:22)
--- NOTE | 2024-02-04 14:08 | W.PN.HOSP.TC ---
Addendum entered and electronically signed by Marlo Camacho MD 02/10/24 11:10:
Confusion with agitation suspected sec to possible progressive NPH or if it is dementia with behavioral disturbances -suspected former based on current available data.
Original Note:
Today's Communication/Plan
-
DC TJU when bed available
Assessment / Plan
Assessment / Plan
# Confusion -worsening - metabolic encephalopathy excluded. Concern is if it is related to NPH or progressive dementia
-no growth on urine culture
-Neuro consulted
-MRI shows-
No acute intracranial abnormality.
There is prominence of the ventricular system which does appears slightly out of proportion to the adjacent volume loss and suggestion of sulcal crowding along the vertex which can be seen with normal pressure hydrocephalus in the correct clinical
setting. This is only slightly increased from 2020.
Sequelae of mild/moderate microangiopathy. Global parenchymal volume loss including the bilateral medial temporal lobes.
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
- Neuro following
-PT/OT recommends SNF
-speech eval noted . Pt adamant that he is able to tolerate regular diet and dont want any speech therapies.
-haldol prn
-avoid benzos/sedatives
#? hydrocephalus
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
- MRI as above
-Neuro following
#frequent falls
#neurogenic bladder
-chronic
-see plan above for hydrocephalus work up
--cw straight cath 3 times a day
# hx of Peripheral neuropathy
-Continue Lyrica
#History of SVT status post ablation/Sick sinus syndrome�s/p pacemaker
# Chronic Back Pain s/p Spinal Stimulator
-Stimulator removed yesterday
# GERD
-Continue Protonix
# Gout
-Continue allopurinol
#hxt of IBS
dicyclomine continued
#HLD
-statin continued
# Hx Prostate CA s/p Radiation/BPH
-Flomax continued
#DVT prophylaxis
-Lovenox
#CODE status
-full code
DW neuro -recommends transfer to [place]
DW Dr Keating , neurology literacy education professor 02/02- recommends LP large volume removal and assess gait and if positive then consideration will be given for CRYSTALIZER TENDER shunt. They usually do this as an outpatient.
today tells me that she had word with her neurologist Dr. Angulo who apparently spoke to [facility] Dr. Lucian Cobos who will be willing to accept the patient.
Call [facility] transfer ctr who told me that Dr Cobos is accepting the patient .
Anticipated Discharge: Today
Subjective/Interval History
-
Date of Service: February 04, 2024
Pleasantly confused.
No agitation today.
Objective Data
-
Vital Signs:
Vital Signs
Temp Pulse Resp BP Pulse Ox
97.7 F 66 18 106/70 92
02/04/24 08:28 02/04/24 08:28 02/04/24 08:28 02/04/24 08:28 02/04/24 08:28
I&O
02/03/24 02/04/24 02/05/24
06:59 06:59 06:59
Intake Total 480 / 480 190 / 190
Output Total 800 / 800 750 / 750
Balance -320 / -320 -560 / -560
Review of Systems
-
Unable to obtain full review of systems at this time due to: Dementia
Physical Exam
-
General: No Apparent Distress
HEENT: Moist Mucous Membranes
Respiratory: Non Labored Respirations; Negative Accessory Resp Muscle Use
Cardiac: Regular Rhythm and S1/S2
Neuro: Awake, Alert and Oriented (self)
Psych: Calm and Confused; Negative Agitated
--- NOTE | 2024-02-04 14:41 | W.DCSUMMARY ---
Discharge Summary
Discharge Data
Date of Admission: 01/29/24
Date of Discharge: 02/04/24
-
Pending Results: No
Hospital Course
Primary diagnosis:
Progressive NPH( normal pressure hydrocephalus)
Secondary diagnosis:
Peripheral neuropathy. Pacemaker in situ.
Chronic back pain with prior spinal stimulator which was removed recently
Gout
Gastroesophageal reflux disease
History of prostate cancer
Benign prostatic hypertension
Hyperlipidemia
Hospital course:
Patient with a history of NPH and also given diagnosis of dementia presented with increasing confusion. He was also having increasing falls. He is also having urinary retention requiring straight cath by at home. He is alert any major
metabolic disturbances. Rule out any obvious infection. He had recently spinal stimulator removed so we were able to get an MRI of the brain which showed prominence of the ventricular system which does appears slightly out of proportion to the
adjacent volume loss and suggestion of sulcal crowding along the vertex which can be seen with normal pressure hydrocephalus in the correct clinical setting. This is only slightly increased from 2020.Sequelae of mild/moderate microangiopathy. Global
parenchymal volume loss including the bilateral medial temporal lobes.
He already was to twice ER at [facility] for falls and instead got admitted.
In view of progressive nature of the NPH we discussed the case with primary neurology Dr. Angulo and also neurosurgery Dr. Lucian Cobos who accepted the patient in transfer for NPH evaluation and ASSISTANT CLINICAL NURSE MANAGER shunt evaluation.
Consultants on board:
Neurology César Sanchez
Discharge Plan
-
Patient Disposition: Acute Care Hospital
Discharge Orders:
Discharge Patient (As Directed); Ordered 02/04/24
Ordered By: Marlo Camacho
Discharge Date and Time
Print Language: KINYARWANDA
[2024-02-04 15:02] VITALS: BP 129/65
--- NOTE | 2024-02-04 17:02 | PTCARENOTE ---
Report given to Yvonne at [facility] neuroscience. updated on plan. Expected time of transport is 18:30 via Acute care BLS.
[2024-02-04] MEDS: FLOMAX 0.4 MG PO (17:32)
[2024-02-04] MEDS: LIPITOR 10 MG PO (17:32)
[2024-02-04] MEDS: ASPIR LOW (ENTERIC COATED) 81 MG PO (17:32)
[2024-02-04] MEDS: LOVENOX 40 MG SC (17:32)
[2024-02-05 19:57] LABS: Vitamin B1, Whole Blood 121 nmol/L (70-180)
== END 2024-02-04 19:50 | disposition short-term general hospital (02) | DRG 884 ==
LOC: 3 WEST ACU 16:14
PROVIDERS: Physician Assistant Medical; Registered Nurse; ADMITTING PHYSICIAN Internal Medicine; ATTENDING PHYSICIAN Internal Medicine; CONSULT PHYSICIAN Psychiatry & Neurology Neurology; EMERGENCY PHYSICIAN Emergency Medicine; FAMILY PHYSICIAN Internal Medicine
DX: F03.911 Unspecified dementia, unspecified severity, with agitation (principal); G91.2 (Idiopathic) normal pressure hydrocephalus; R47.01 Aphasia; I10 Essential (primary) hypertension; F03.918 Unspecified dementia, unspecified severity, with other behavioral disturbance; I49.5 Sick sinus syndrome; Z85.46 Personal history of malignant neoplasm of prostate; E78.00 Pure hypercholesterolemia, unspecified; G62.9 Polyneuropathy, unspecified; G89.29 Other chronic pain; I25.10 Atherosclerotic heart disease of native coronary artery without angina pectoris; Z95.0 Presence of cardiac pacemaker; K21.9 Gastro-esophageal reflux disease without esophagitis; M10.9 Gout, unspecified; N31.9 Neuromuscular dysfunction of bladder, unspecified; N40.0 Benign prostatic hyperplasia without lower urinary tract symptoms; R53.1 Weakness; R29.6 Repeated falls; R94.01 Abnormal electroencephalogram [EEG]; W06.XXXA Fall from bed, initial encounter; Z87.19 Personal history of other diseases of the digestive system; Z86.010 Personal history of colon polyps; Z87.442 Personal history of urinary calculi; Z92.3 Personal history of irradiation
CPT/HCPCS: 70450; 70496; 70498; 70551; 72070; 72100; 80048; 80053; 81003; 81015; 82140; 82607; 82962; 84425; 84443; 84484; 85025; 85027; 85652; 86140; 86780; 87086; 92526; 92610; 93005; 95816; 97163; 97167; 97530; 97535; 99285; Q9967

== ENCOUNTER 2024-12-04 10:40 | Emergency (ER) | payer MEDICARE, BC, SELFPAY ==
[2024-12-04 10:49] VITALS: BP 154/75
[2024-12-04 11:00] VITALS: BP 154/70
--- NOTE | 2024-12-04 11:38 | ED.GENMED ---
History of Present Illness
General
Chief Complaint: Change in Mental Status
Source: significant other and ambulance crew
Exam Limitations: dementia
Time Seen by Provider: 12/04/24 11:22
History of Present Illness
History of Present Illness:
84-year-old male with a history of pretty severe dementia who lives with his coming from home for change in mental status noticed this morning. Patient has a history of normal pressure hydrocephalus and is status post a POST FORM REMOVER shunt, neurogenic
bladder requiring straight cath by 3 times a day, pacemaker
Per the patient was himself yesterday. She sleeps in a different room and when she went to check on him this morning he was sleeping and was not easily arousable. Patient was not quite opening his eyes and was not responding to commands.
Patient's had a aide with her trying to get him awake and he would not wake up. His blood pressure went up to 170/80. Ultimately he did open his eyes and now he is at his baseline. He is quite confused and cannot provide any history.
Patient has had a history of UTIs in the past. He was not straight cath yet this morning. During this period of drowsiness the patient was breathing, not shaking, and not really following commands.
Patient currently denies any complaints
Past History
Past History
ED Past Medical History: Arrthythmia (SVT), CAD (Pacemaker), Cancer (prostate carcinoma), GERD, HTN, Hypercholesterolemia and Other (interval bowel syndrome, vertigo, peripheral neuropathy, gout, syncope)
ED Past Surgical History: Appendectomy, Cardiac (pacemaker, ablation) and Orthopedic (knee surgery, carpal tunnel repair, pain stimulator in lumbar spine placed 2019)
Patient has exhibited threatening behavior?: No
PSI?: No
Social History
Tobacco: Non-smoker
Alcohol: None
Drug: None
Personal:
Living: with family
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
Family History
Family History: Other (reviewed and Noncontributory)
Review of Systems
Review of Systems
Allergies reviewed?: Yes
Unable to obtain full review of systems at this time due to: dementia
All Other Systems: Not applicable
Phy Exam
Physical Exam
Physical Exam:
GENERAL: Alert , patient was quite anxious and agitated before his got there
HEAD: NCAT
EYE: pupils equal and reactive, no nystagmus, no photophobia
NECK: Supple,full rom, nontender
ENT: o/p clr, mmm.
CARDIAC: Regular rate and rhythm . no edema
LUNGS: Clear breath sounds bilaterally, no acute respiratory distress, no wheezes/rales/rhonchi
ABDOMEN: Soft, without focal tenderness, no r/g, no cvat
NEUROLOGICAL: Alert and orientedx 1 only, cn intact, no facial asymmetry, 5/5 strength in UE/LE, sensation intact, moving all extremities normally
SKIN: Warm and dry, skin intact.
MUSCULOSKELETAL: No edema, well perfused.
PSYCH: Severe dementia
Course
Orders/Labs/Results
Orders:
Orders
12/04/24 11:32
Straight cath- Treatment ONCE
pacemaker [Interrogate Pacemaker- Treatment] ONCE
12/04/24 11:34
CT Head W/o Iv Contrast Urgent
Comment:
Reason For Exam: dementia, ams
12/04/24 11:45
Complete Blood Count/With Diff Urgent
Comprehensive Metabolic Panel Urgent
Troponin I Urgent
Urinalysis Reflex To Culture Urgent
Date Specimen was Collected: 12/04/24
Time Specimen was Collected: 11:44
Urine Microscopic Reflex Cult Urgent
Urine Culture Urgent
ROMINA Source: U
Specimen Description:
Date Specimen was Collected: 12/04/24
Time Specimen was Collected: 11:44
12/04/24 14:19
Ciprofloxacin HCl [Cipro] 500 mg PO NOW STA
Abnormal Lab Results
12/04/24
11:45
WBC 3.9 L 10^3/uL
(4.8-10.8)
RBC 3.99 L 10^6/uL
(4.70-6.10)
Hct 38.7 L %
(39.0-52.0)
MCV 97.0 H fL
(80.0-94.0)
MCH 33.8 H pg
(27.0-31.0)
MPV 10.5 H fL
(7.4-10.4)
Abs Immat Gran (auto) 0.1 H 10^3/uL
(0-0.05)
Immature Gran % 1.5 H %
(0-0.5)
Monocytes % 11.3 H %
(1.7-9.3)
Chloride 108 H mmol/L
(98-107)
Glucose 103 H mg/dl
(70-99)
Ur Occult Blood Reflex 1+ A
(Negative)
Leukocyte Esterase Rfl 2+ A
(Negative)
Urine RBC 3-6 A /HPF
(0-2)
Urine WBC (Reflex) 50-60 A /HPF
(0-5)
Urine Bacteria (Reflex) Moderate A
(Negative)
12/04/24 11:45
12/04/24 11:45
Vital Signs
Initial and Last Documented VS:
Initial Vital Signs
BP
154/75
12/04/24 10:49
Last Documented Vital Signs
Temp Pulse Resp BP Pulse Ox
36.4 C 66 22 101/66 97
12/04/24 14:17 12/04/24 12:14 12/04/24 12:14 12/04/24 13:13 12/04/24 11:42
MDM/Problems Addressed
Differential Diagnosis Includes:
AMS, TME, UTI, seizure, bleed, stroke, dysrhythmia
MDM/Problems Addressed:
ptis 84 y/o M
NPH s/p POST FORM REMOVER shutn last year ([facility])
severe dementia
AMS episode this AM; family couldn't wake him up; mumbling and not following commands, not really opening his eyes; breathing and bp was elevated
here back to baseline
no focal neuro deficits
labs unremarkable except urine looks maybe infected; self caths so i was going to blame this event on the infection
but his CT shows his ventricles still dilated; sounds like the CTs post shunt are about the same
pt has been at his baseline here
he looks well
had 1 irregular bp (80/50 that was not while the cuff was on the patient, inaccurate)
pacer interrogated, no acute events
otherwise his w/u looks like UTI
case d/w ed attending who also saw pt
he has a very hard time in the hospital due to dementia and she woul dprefer to take him home
will treat with cipro since he has had that before with UTIs form his urologist
and have low threshold to return to the ER
doubt shunt malfucntion as pt is at his basleine
also doubt seizure but considreed, i did speak with neuro who agreed with plan
*Pulse Oximetry
SaO2: 97
*Critical Care Note
Total Time (30-74mins, 75-104mins- exclusive of procedures): Not Applicable
ED Attending Note
-
Portions of this chart may have been created with voice recognition software.� Occasional wrong word or��sound alike� substitutions may have occurred due to the inherent limitations of voice recognition software.
Discharge Plan
Departure
Patient Disposition: Home (Routine Discharge)
Date of Disposition: 12/04/24
Time of Disposition: 14:17
Patient with high blood pressure during this ER visit?: No
Condition: Fair
Covid-19: Not Applicable
Discharge Problem:
UTI (urinary tract infection), AMS (altered mental status)
Instructions: Altered Mental Status (DC), Urinary tract infection - Discharge instructions
Prescriptions:
No Action
tamsulosin 0.4 MG capsule
0.4 mg PO QPM
simvastatin 20 MG tablet
20 mg PO QPM
aspirin 81 MG tablet,delayed release (DR/EC)
81 mg PO QPM
allopurinol 300 MG tablet
150 mg PO DAILY
pregabalin 200 mg Capsule
200 mg PO TID
cholecalciferol (vitamin D3) [Vitamin D3] 25 mcg (1,000 unit) Tablet
25 mcg PO DAILY
Referrals:
Chuck Young MD [Family Provider, Internal Medicine] - Follow up in 2-3 days
Activity Restrictions/Additional Instructions:
There was no significant findings today on his workup other than the urine which could be infection. Try the Cipro 500 mg twice a day FOR 7 DAYS which you already have.
Make sure that he is reassessed tomorrow, have a low threshold for bringing back for any change in mental status episodes, low blood pressure, increased confusion, fever etc.
Return for any concerns.
Interventions
Interventions:
*Risk Screen - Suicide Last Done: 12/04/24 10:42
*General Assessment Last Done: 12/04/24 10:42
*Neglect/Abuse Screening Last Done: 12/04/24 10:42
*Nursing Disposition Last Done: 12/04/24 15:25
ED- Pulmonary Assessment Last Done: 12/04/24 15:15
ED- Neurological Assessment Last Done: 12/04/24 11:06
ED- Cardiac Assessment Last Done: 12/04/24 15:15
Discharge Date and Time
Discharge Date/Time: 12/04/24 15:25
Print Language: CANADIAN
[2024-12-04 11:53] LABS: % Basophils 0.8 % (0-2); % Eosinophils 3.1 % (0-6); % Immature Granulocytes 1.5 % (0-0.5); % Lymphocytes 40.5 % (20.5-51.1); % Monocytes 11.3 % (1.7-9.3); % Neutrophils 42.8 % (42.2-75.2); Absolute Eosinophils 0.1 10^3/uL (0-0.7); Absolute Immature Granulocytes 0.1 10^3/uL (0-0.05); Absolute Lymphocytes 1.6 10^3/uL (1.2-3.4); Absolute Monocytes 0.4 10^3/uL (0.1-0.6); Absolute Neutrophils 1.7 10^3/uL (1.4-6.5); Hematocrit 38.7 % (39.0-52.0); Hemoglobin 13.5 g/dL (13.0-18.0); Mean Corp Hgb Conc. 34.9 g/dL (33.0-37.0); Mean Corpuscular Hgb 33.8 pg (27.0-31.0); Mean Platelet Volume 10.5 fL (7.4-10.4); Nucleated Red Blood Cells % 0 % (-); Platelet Count 175 10^3/uL (130-400); Red Blood Cell Count 3.99 10^6/uL (4.70-6.10); Red Cell Dist. Width 13.6 % (11.5-14.5); White Blood Cell Count 3.9 10^3/uL (4.8-10.8)
[2024-12-04 11:54] LABS: Urine Albumin Negative (Neg - Trace); Urine Bilirubin Negative (Negative); Urine Character Clear (Clear); Urine Color Yellow; Urine Glucose Negative (Negative); Urine Ketone Negative (Negative); Urine Leukocyte 2+ (Negative); Urine Nitrite Negative (Negative); Urine Occult Blood 1+ (Negative); Urine Urobilinogen Negative (Neg - 1+)
[2024-12-04 12:05] VITALS: BMI 29.3
[2024-12-04 12:20] LABS: Urine Squamous Cell 0-2 /LPF (Few)
[2024-12-04 12:21] LABS: ALT (SGPT) 27 U/L (0-50); AST (SGOT) 22 U/L (17-59); Albumin 4.2 g/dl (3.5-5.0); Alkaline Phosphatase 58 U/L (38-126); Blood Urea Nitrogen 17 mg/dl (9-20); Calcium 9.3 mg/dl (8.4-10.2); Carbon Dioxide 28 mmol/L (22-30); Chloride 108 mmol/L (98-107); Estimated Creatinine Clearance 84 ml/min; Glucose 103 mg/dl (70-99); Potassium 4.5 mmol/L (3.5-5.1); Sodium 142 mmol/L (135-145); Total Bilirubin 0.8 mg/dl (0.2-1.3); Total Protein 6.9 g/dl (6.3-8.2); eGFR > 60.00
[2024-12-04 12:22] LABS: Urine Bacteria Moderate (Negative); Urine White Cell 50-60 /HPF (0-5)
[2024-12-04 12:34] LABS: Troponin I < 0.012 ng/ml
[2024-12-04 13:13] VITALS: BP 101/66
[2024-12-04] MEDS: CIPRO 500 MG PO (14:39)
== END 2024-12-04 15:25 | disposition home or self-care (01) ==
LOC: EMR 10:40
PROVIDERS: Physician Assistant; EMERGENCY PHYSICIAN Emergency Medicine; FAMILY PHYSICIAN Internal Medicine
DX: N39.0 Urinary tract infection, site not specified (principal); R41.82 Altered mental status, unspecified; F03.C0 Unspecified dementia, severe, without behavioral disturbance, psychotic disturbance, mood disturbance, and anxiety; G91.2 (Idiopathic) normal pressure hydrocephalus; N31.9 Neuromuscular dysfunction of bladder, unspecified; I25.10 Atherosclerotic heart disease of native coronary artery without angina pectoris; I47.10 Supraventricular tachycardia, unspecified; I10 Essential (primary) hypertension; E78.00 Pure hypercholesterolemia, unspecified; G62.9 Polyneuropathy, unspecified; K21.9 Gastro-esophageal reflux disease without esophagitis; M10.9 Gout, unspecified; Z98.2 Presence of cerebrospinal fluid drainage device; Z95.0 Presence of cardiac pacemaker; Z85.46 Personal history of malignant neoplasm of prostate; Z87.440 Personal history of urinary (tract) infections; Z88.6 Allergy status to analgesic agent; Z88.5 Allergy status to narcotic agent; Z91.048 Other nonmedicinal substance allergy status
CPT/HCPCS: 99285; 51701; 93288; 70450; 80053; 81003; 81015; 84484; 85025; 87086